=== PATIENT | female | born 1960 | race Caucasian/White ===

== ENCOUNTER → 2024-01-30 16:28 | Outpatient (REF) | payer MEDICARE, SELFPAY | LOC: RAD 16:28 | PROVIDERS: ATTENDING PHYSICIAN Podiatrist Foot Surgery; FAMILY PHYSICIAN Family Medicine | DX: M79.89 Other specified soft tissue disorders (principal) | CPT/HCPCS: 93971 ==

== ENCOUNTER 2024-03-01 10:53 | Emergency (ER) | payer MEDICARE, SELFPAY ==
[2024-03-01 10:58] VITALS: BP 146/89
[2024-03-01 11:43] VITALS: BMI 37.3
--- NOTE | 2024-03-01 11:49 | EDRN ---
Monserrat FUENTES in room w/ pt at this time.
--- NOTE | 2024-03-01 11:58 | ED.GENMED ---
History of Present Illness
General
Chief Complaint: Back Pain
Source: patient
Time Seen by Provider: 03/01/24 11:45
History of Present Illness
History of Present Illness:
63yoF with a history of type 2 diabetes not on medications and a remote history of ulcerative colitis presenting with her sister for evaluation of back pain. Patient reports constant right-sided back pain for the past 3 weeks. She denies any
trauma or inciting incident. Pain is worse if she lays flat. She is experiencing some paresthesias in her bilateral legs. Patient has not been taking anything OTC for her symptoms. She also reports constipation and has not had a bowel movement 2
weeks. She typically has regular bowel movements. She started to feel nauseous last night with urinary frequency. She states she overall has not been feeling right. Patient denies any fevers, chills, abdominal pain, vomiting, weight loss,
incontinence. No prior history of back injuries or surgeries. No history of malignancy or IVDU.
Past History
Past History
ED Past Medical History: NIDDM and Other (Diet-controlled diabetes mellitus, kidney stones, ulcers colitis, Cellulitis, )
ED Past Surgical History:
Social History
Tobacco: Non-smoker
Alcohol: None
Drug: None
Personal:
Living: with family
Employment: Employed
Phy Exam
General Physical Exam
General Presentation: well appearing and no apparent distress
General age: appears stated age
General Skin: warm and dry
General Habitus: normal
General Mental: alert
General Hydration: appears well hydrated
ENT Exam
ENT Exam: normocephalic
Cardiovascular Exam
Cardiovascular Exam: regular rate/rhythm and normal peripheral pulses (2+ DP pulses bilaterally)
Pulmonary Exam
Pulmonary Exam: lungs clear, no respiratory distress, no crackles and no wheezing
Gastrointestinal Exam
Gastrointestinal Exam: non tender, soft, non distended and no cva tenderness
Osorio Coma Scale
Eye Opening: Spontaneous
Verbal Response: Oriented
Motor Response: Obeys Commands
GCS Total Score: 15
Musculoskeletal Exam
Musculoskeletal Exam: other (No reproducible tenderness in lumbar region or skin changes. Negative straight leg raise bilaterally. )
Skin Exam
Skin Exam: normal color and warm/dry
Psychiatric Exam
Psychiatric Exam: normal mood/affect
Course
Orders/Labs/Results
Orders:
Orders
03/01/24 11:48
Cardiac Monitoring- Treatment ONCE
IV Insert/Care/Rem.- Treatment PRN
03/01/24 12:00
CT Abd/pelvis W Iv Cont Urgent
Comment:
Reason For Exam: R back pain, urinary frequency, constipation
03/01/24 12:23
Complete Blood Count/With Diff Stat
Comprehensive Metabolic Panel Stat
Lipase Stat
Comment: ADD ON
Urinalysis Reflex To Culture Urgent
Date Specimen was Collected: 03/01/24
Time Specimen was Collected: 12:17
Urine Microscopic Reflex Cult Urgent
Urine Culture Urgent
JAKI Source: U
Specimen Description:
Date Specimen was Collected: 03/01/24
Time Specimen was Collected: 12:17
03/01/24 14:18
Add On- LAB Urgent
Comments:: tube in lab
Tests Added?: Lipase
Abnormal Lab Results
03/01/24
12:23
Glucose 142 H mg/dl
(70-99)
Alkaline Phosphatase 165 H U/L
(38-126)
Lipase 16 L U/L
(23-300)
Urine Ketones 1+ A
(Negative)
Ur Occult Blood Reflex Trace A
(Negative)
Leukocyte Esterase Rfl 1+ A
(Negative)
Urine RBC 3-6 A /HPF
(0-2)
Urine WBC (Reflex) 11-15 A /HPF
(0-5)
Urine Bacteria (Reflex) Moderate A
(Negative)
03/01/24 12:23
03/01/24 12:23
Vital Signs
Initial and Last Documented VS:
Initial Vital Signs
Temp Pulse Resp BP Pulse Ox
98.1 F 93 16 146/89 98
03/01/24 10:58 03/01/24 10:58 03/01/24 10:58 03/01/24 10:58 03/01/24 10:58
Last Documented Vital Signs
Temp Pulse Resp BP Pulse Ox
98.1 F 80 18 152/73 98
03/01/24 10:58 03/01/24 15:15 03/01/24 15:15 03/01/24 15:15 03/01/24 15:15
MDM/Problems Addressed
Differential Diagnosis Includes:
63yoF here with atraumatic back pain x 3 weeks. Also having urinary frequency, nausea, and constipation. No red flags in history including no fevers, incontinence, saddle anesthesia. VSS. She is well appearing in no distress. There is no
reproducible tenderness in lumbar region. Lower extremities are neurovascularly intact. Differential diagnosis includes but is not limited to: Musculoskeletal back pain, UTI, pyelonephritis, kidney stone
Initial ED plan: Check CBC, CMP, UA, and CT abdomen. She declines analgesics.
*Critical Care Note
Total Time (30-74mins, 75-104mins- exclusive of procedures): Not Applicable
Update Note
Update Note:
Labs overall unremarkable including normal white count and renal function. UA with 11-15 WBC and moderate bacteria consistent with a UTI. CT shows an anterior compression fracture of T11 with minimal loss of height. There is also findings concerning
for chronic pancreatitis. She has no abdominal pain currently. Lipase added which is below normal range. No indication for admission at this time. She was started on a course of doxycycline for her UTI (allergy to sulfa drugs and patient has not
done well with cephalosporins in the past). Advised f/u with PCP, orthopedics, and GI. ED return precautions discussed. She expressed understanding and is agreeable to plan. She was discharged in stable condition.
ED Attending Note
-
Portions of this chart may have been created with voice recognition software.� Occasional wrong word or��sound alike� substitutions may have occurred due to the inherent limitations of voice recognition software.
Discharge Plan
Departure
Patient Disposition: Home (Routine Discharge)
Date of Disposition: 03/01/24
Time of Disposition: 14:40
Patient with high blood pressure during this ER visit?: No
Discharge Problem:
Compression fracture of T11 vertebra, Urinary tract infection, Abnormal abdominal CT scan
Instructions: Vertebral Compression Fracture (DC)
Prescriptions:
New
doxycycline hyclate 100 mg capsule
100 mg PO BID Qty: 14 0RF
No Action
multivitamin with folic acid [Tab-A-Claus] 1 TABLET tablet
1 tab PO DAILY
cholecalciferol (vitamin D3) [Vitamin D3] 125 mcg (5,000 unit) Tablet
125 mcg PO HS
Berberine
1 tab PO MEALS
Cholesterol Vitamin
1 tab PO MEALS
Cinnamon
1 tab PO MEALS
Co Q-10
1 tab PO DAILY
cranberry
1 tab PO DAILY
krill oil
1 tab PO HS
cefazolin 10 gram Recon Soln
2 g IV Q8H 7 Days Qty: 0 0RF
insulin glargine [Lantus Solostar U-100 Insulin] 100 unit/mL (3 mL) insulin pen
10 unit SC QPM Qty: 15 0RF
(DME) diabetic supplies, miscellan. Misc
See Rx Instructions .Route Qty: 1 0RF
Rx Instructions:
As directed
Referrals:
NONE,* [Family Provider] -
Sahwn Mejía MD [Active] -
Callie Pollard DO [Active] -
Activity Restrictions/Additional Instructions:
Take antibiotics as prescribed. Take Tylenol 650mg every 6 hours as needed for pain.
Please follow-up with orthopedics for the fracture in your back and gastroenterology for the possible chronic pancreatitis seen on your CT scan.
Return to the ER with any worsening symptoms, incontinence, new weakness/numbness.
Interventions
Interventions:
*Risk Screen - Suicide Last Done: 03/01/24 11:00
*General Assessment Last Done: 03/01/24 11:43
*Neglect/Abuse Screening Last Done: 03/01/24 11:00
ED- Fall Risk Assessment Last Done: 03/01/24 11:44
*ED COVID-19 Vaccine History Last Done: 03/01/24 11:43
*Nursing Disposition Last Done: 03/01/24 15:15
ED-Musculoskeletal Assessment Last Done: 03/01/24 12:20
Discharge Date and Time
Discharge Date/Time: 03/01/24 15:25
Print Language: BELARUSIAN
[2024-03-01 12:30] VITALS: BP 139/68
[2024-03-01 12:32] LABS: % Basophils 0.4 % (0-2); % Eosinophils 0.4 % (0-6); % Immature Granulocytes 0.1 % (0-0.5); % Lymphocytes 24.1 % (20.5-51.1); % Monocytes 8.2 % (1.7-9.3); % Neutrophils 66.8 % (42.2-75.2); Absolute Lymphocytes 1.7 10^3/uL (1.2-3.4); Absolute Monocytes 0.6 10^3/uL (0.1-0.6); Absolute Neutrophils 4.7 10^3/uL (1.4-6.5); Hematocrit 37.3 % (37.0-47.0); Hemoglobin 13.3 g/dL (12.0-16.0); Mean Corp Hgb Conc. 35.7 g/dL (33.0-37.0); Mean Corpuscular Hgb 29.2 pg (27.0-31.0); Mean Corpuscular Volume 81.8 fL (81.0-99.0); Mean Platelet Volume 8.9 fL (7.4-10.4); Nucleated Red Blood Cells % 0 %; Platelet Count 332 10^3/uL (130-400); Red Blood Cell Count 4.56 10^6/uL (4.20-5.40)
[2024-03-01 12:34] LABS: Urine Albumin Trace (Neg - Trace); Urine Bilirubin Negative (Negative); Urine Character Clear (Clear); Urine Color Yellow; Urine Glucose Negative (Negative); Urine Ketone 1+ (Negative); Urine Leukocyte 1+ (Negative); Urine Nitrite Negative (Negative); Urine Occult Blood Trace (Negative); Urine Urobilinogen Negative (Neg - 1+)
[2024-03-01 12:46] LABS: ALT (SGPT) 22 U/L (0-35); AST (SGOT) 25 U/L (14-36); Albumin 4.5 g/dl (3.5-5.0); Alkaline Phosphatase 165 U/L (38-126); Blood Urea Nitrogen 12 mg/dl (7-17); Calcium 9.6 mg/dl (8.4-10.2); Carbon Dioxide 25 mmol/L (22-30); Chloride 98 mmol/L (98-107); Estimated Creatinine Clearance 91 ml/min; Glucose 142 mg/dl (70-99); Sodium 137 mmol/L (135-145); Total Bilirubin 1.2 mg/dl (0.2-1.3); eGFR > 60.00
[2024-03-01 13:00] VITALS: BP 135/68
[2024-03-01 13:28] LABS: Urine Squamous Cell >30 /LPF (Few)
[2024-03-01 13:29] LABS: Urine Hyaline Cast >15 /LPF (0-2); Urine Mucus Few
[2024-03-01 13:30] LABS: Urine Bacteria Moderate (Negative)
[2024-03-01 14:00] VITALS: BP 139/91
[2024-03-01 14:54] LABS: Lipase 16 U/L (23-300)
[2024-03-01 15:07] VITALS: BP 152/73
[2024-03-01 15:15] VITALS: BP 152/73
== END 2024-03-01 15:25 | disposition home or self-care (01) ==
LOC: EMR 10:53
PROVIDERS: Physician Assistant; EMERGENCY PHYSICIAN Emergency Medicine
DX: M48.54XA Collapsed vertebra, not elsewhere classified, thoracic region, initial encounter for fracture (principal); N39.0 Urinary tract infection, site not specified; R20.2 Paresthesia of skin; K59.00 Constipation, unspecified; R93.5 Abnormal findings on diagnostic imaging of other abdominal regions, including retroperitoneum; E11.9 Type 2 diabetes mellitus without complications; K51.90 Ulcerative colitis, unspecified, without complications; Z87.442 Personal history of urinary calculi; Z88.2 Allergy status to sulfonamides
CPT/HCPCS: 99284; 74177; 80053; 81003; 81015; 83690; 85025; 87086; Q9967

== ENCOUNTER → 2024-03-23 15:16 | Outpatient (REF) | payer MEDICARE, SELFPAY | LOC: RAD 15:16 | PROVIDERS: ATTENDING PHYSICIAN Physical Medicine & Rehabilitation | DX: S22.080A Wedge compression fracture of T11-T12 vertebra, initial encounter for closed fracture (principal) | CPT/HCPCS: 77080 ==

== ENCOUNTER 2024-06-26 17:23 | Emergency (ER) | payer MEDICARE, SELFPAY ==
[2024-06-26 17:54] VITALS: BP 159/111
[2024-06-26 21:17] VITALS: BP 159/80; BMI 38.9
--- NOTE | 2024-06-26 21:59 | ED.GENMED ---
History of Present Illness
General
Chief Complaint: Fall
Source: patient and spouse
Time Seen by Provider: 06/26/24 21:10
History of Present Illness
History of Present Illness:
This is 64-year-old female who presents after she fell last night. States she missed stepped off a curb and fell down injuring her left shoulder and her face. She does report some mild neck pain as well as some pain toward her left ear. Also
obviously complains of left shoulder pain the most. Had x-rays done urgent care which was concerning for fracture and possible dislocation. No loss of conscious. She states she was just very tired last come in last night. No lower extremity
injuries no back pain. No numbness or tingling. No motor weakness. No vision changes.
Past History
Past History
ED Past Medical History: NIDDM and Other (Diet-controlled diabetes mellitus, kidney stones, ulcers colitis, Cellulitis, DVT)
ED Past Surgical History:
Social History
Tobacco: Non-smoker
Alcohol: None
Drug: None
Personal:
Living: with family
Employment: Employed
Phy Exam
Physical Exam
Physical Exam:
CONSTITUTIONAL Patient alert and oriented to person, place and time. Well-appearing. Vital signs reviewed.
HEAD well-approximated laceration to the upper eyelid. Abrasion to the left face. TMs normal bilaterally
EYES Extraocular muscles intact, Conjunctiva normal, Sclera normal.
NECK normal range of motion, Trachea midline, no jugular venous distention. No focal midline tenderness
RESPIRATORY CHEST No respiratory distress noted, Chest expansion equal
ABDOMEN abdomen nontender, Bowel sounds normal. No distention.
BACK normal inspection, no obvious deformities, no midline tenderness
UPPER EXTREMITY Motor strength normal, no cyanosis, no edema. Unable to range the left shoulder. There is a fullness anteriorly
LOWER EXTREMITY range of motion normal, Motor strength normal, no cyanosis, no edema.
NEURO Speech normal, No focal motor deficits, Boone coma scale 15, Memory normal, Cranial Nerves intact to screening exam.
SKIN skin warm, dry, and normal in color.
Course
Orders/Labs/Results
Orders:
Orders
06/26/24 21:43
CT Cervical Spine W/o Iv Contr Urgent
Comment:
Reason For Exam: fall
CT Head W/o Iv Contrast Urgent
Comment:
Reason For Exam: fall
Shoulder, Left, Trauma CR [CR Shoulder, Trauma - Left] Urgent
Comment:
Reason For Exam: fall
06/26/24 23:27
CT Upper Ext W/o Iv Cont Lt Urgent
Comment:
Reason For Exam: fall
Vital Signs
Initial and Last Documented VS:
Initial Vital Signs
Temp Pulse Resp BP Pulse Ox
99.3 F 94 18 159/111 96
06/26/24 17:54 06/26/24 17:54 06/26/24 17:54 06/26/24 17:54 06/26/24 17:54
Last Documented Vital Signs
Temp Pulse Resp BP Pulse Ox
99.3 F 84 16 154/75 93
06/26/24 17:54 06/26/24 22:00 06/26/24 22:00 06/26/24 23:00 06/26/24 23:00
MDM/Problems Addressed
MDM/Problems Addressed:
Shoulder subluxation, humerus fracture
*Radiology
Radiology exam reviewed: preliminary read by ED provider (Humerus fracture, shoulder subluxation versus dislocation)
*Pulse Oximetry
Patient hypoxic: no
*Critical Care Note
Total Time (30-74mins, 75-104mins- exclusive of procedures): Not Applicable
Data Reviewed
Review of Other/Old Records Reveals: Discharge Summary (Discharge summary reviewed from March 2020)
Source: patient
Patient Management
Discussion with other providers: [employer] Att[employer] (Case discussed with orthopedics who recommends CT)
Escalation/DeEscalation of care consider admission/obs:
CT also just possible subluxation but await final read. Orthopedics recommends discharge for outpatient follow-up if there is no dislocation.
ED Attending Note
-
Portions of this chart may have been created with voice recognition software.� Occasional wrong word or��sound alike� substitutions may have occurred due to the inherent limitations of voice recognition software.
Discharge Plan
Departure
Patient Disposition: Home (Routine Discharge)
Date of Disposition: 06/26/24
Time of Disposition: 23:52
Patient with high blood pressure during this ER visit?: Yes
Discharge Problem:
Fracture, humerus, Fracture subluxation of shoulder joint
Instructions: Shoulder or upper arm fracture, BLOOD PRESSURE
Prescriptions:
No Action
multivitamin with folic acid [Tab-A-Claus] 1 TABLET tablet
1 tab PO DAILY
cholecalciferol (vitamin D3) [Vitamin D3] 125 mcg (5,000 unit) Tablet
125 mcg PO HS
Berberine
1 tab PO MEALS
Cholesterol Vitamin
1 tab PO MEALS
Cinnamon
1 tab PO MEALS
Co Q-10
1 tab PO DAILY
cranberry
1 tab PO DAILY
krill oil
1 tab PO HS
cefazolin 10 gram Recon Soln
2 g IV Q8H 7 Days Qty: 0 0RF
insulin glargine [Lantus Solostar U-100 Insulin] 100 unit/mL (3 mL) insulin pen
10 unit SC QPM Qty: 15 0RF
(DME) diabetic supplies, miscellan. Misc
See Rx Instructions .Route Qty: 1 0RF
Rx Instructions:
As directed
doxycycline hyclate 100 mg capsule
100 mg PO BID Qty: 14 0RF
Referrals:
Marizol Holt I., DO [Active] -
NONE,* [Family Provider] -
Activity Restrictions/Additional Instructions:
Keep sling in place. Please see orthopedics in the next 3 to 5 days. Ice your injury. Keep wounds clean and dry. Return immediately for numbness, tingling, worsening pain or any other concerns.
Interventions
Interventions:
*Risk Screen - Suicide Last Done: 06/26/24 17:54
*General Assessment Last Done: 06/26/24 17:54
*Neglect/Abuse Screening Last Done: 06/26/24 17:54
ED-Musculoskeletal Assessment Last Done: 06/26/24 21:17
ED- Neurological Assessment Last Done: 06/26/24 21:17
ED-Skin Assessment Last Done: 06/26/24 21:17
Discharge Date and Time
Print Language: CHILEAN
[2024-06-26 22:00] VITALS: BP 139/80
[2024-06-26 23:00] VITALS: BP 154/75
[2024-06-27] VITALS: BP 161/82
== END 2024-06-27 00:35 | disposition home or self-care (01) ==
LOC: EMR 17:23
PROVIDERS: EMERGENCY PHYSICIAN Emergency Medicine
DX: S42.295A Other nondisplaced fracture of upper end of left humerus, initial encounter for closed fracture (principal); S43.002A Unspecified subluxation of left shoulder joint, initial encounter; W10.1XXA Fall (on)(from) sidewalk curb, initial encounter
CPT/HCPCS: 99285; 70450; 72125; 73030; 73200

== ENCOUNTER 2024-07-19 21:52 | Emergency (ER) | payer MEDICARE, SELFPAY ==
[2024-07-19 21:52] VITALS: BMI 36.5
[2024-07-19 21:58] VITALS: BP 148/73
[2024-07-19 22:36] LABS: % Basophils 0.2 % (0-2); % Immature Granulocytes 0.6 % (0-0.5); % Lymphocytes 6.6 % (20.5-51.1); % Monocytes 6.2 % (1.7-9.3); % Neutrophils 86.4 % (42.2-75.2); Absolute Immature Granulocytes 0.1 10^3/uL (0-0.05); Absolute Lymphocytes 1.1 10^3/uL (1.2-3.4); Absolute Monocytes 1.1 10^3/uL (0.1-0.6); Absolute Neutrophils 14.7 10^3/uL (1.4-6.5); Hematocrit 38.1 % (37.0-47.0); Hemoglobin 13.4 g/dL (12.0-16.0); Mean Corp Hgb Conc. 35.2 g/dL (33.0-37.0); Mean Corpuscular Hgb 28.6 pg (27.0-31.0); Mean Corpuscular Volume 81.2 fL (81.0-99.0); Nucleated Red Blood Cells % 0 %; Platelet Count 337 10^3/uL (130-400); Red Blood Cell Count 4.69 10^6/uL (4.20-5.40); Red Cell Dist. Width 13.4 % (11.5-14.5)
[2024-07-19 22:47] LABS: INR 1.06; PT 14.1 Sec (11.4-14.6)
[2024-07-19 22:56] LABS: ALT (SGPT) 18 U/L (0-35); AST (SGOT) 18 U/L (14-36); Albumin 4.1 g/dl (3.5-5.0); Alkaline Phosphatase 158 U/L (38-126); Blood Urea Nitrogen 13 mg/dl (7-17); Calcium 9.3 mg/dl (8.4-10.2); Carbon Dioxide 24 mmol/L (22-30); Chloride 90 mmol/L (98-107); Glucose 231 mg/dl (70-99); Potassium 3.8 mmol/L (3.5-5.1); Sodium 125 mmol/L (135-145); Total Bilirubin 1.9 mg/dl (0.2-1.3); eGFR > 60.00
[2024-07-19 23:03] LABS: COVID-19 Antigen Negative (Negative); Troponin I < 0.012 ng/ml
[2024-07-19 23:14] VITALS: BP 135/70
[2024-07-20] VITALS (7 sets, daily range): BP systolic 113–148; BP diastolic 66–83
--- NOTE | 2024-07-20 00:41 | ED.GENMED ---
History of Present Illness
General
Chief Complaint: Chest Pain
Time Seen by Provider: 07/20/24 00:40
History of Present Illness
History of Present Illness:
TIME OF INITIAL ENCOUNTER: 2 AM
HPI: The patient has a general unwell feeling. Family members have viral syndromes. She also recently fractured her left shoulder. She feels tremendously exhausted to the point that she can barely walk. She also had some vague 'quivering'
sensation in the central chest that she states feels similar to the time that she had a blood clot in her lungs.
EXAM:
GENERAL: The patient appears generally weak and debilitated
HEENT: Moist oral mucosa
CARDIOVASCULAR: No murmurs, normal heart rate, regular rhythm, No chest wall tenderness
PULMONARY: No respiratory distress, breath sounds are clear and equal
ABDOMEN: Soft with no peritoneal signs, no tenderness
NEUROLOGIC: Excellent strength all extremities, no coordination deficits
PSYCHIATRIC: Appropriate mental status, normal insight and judgement
EXTREMITIES: Nontender, no edema, moves all extremities equally
SKIN: No rash, no lesions
NUMBER AND COMPLEXITY OF PROBLEMS ADDRESSED AT THE ENCOUNTER
� Chronic conditions affecting care: DVT, ulcerative colitis, diabetes
� Acute Exacerbation and/or Progression of Chronic Illness: This is an acute problem
� Differential Diagnosis includes: Viral syndrome, electrolyte abnormality, poorly controlled diabetes, dehydration
AMOUNT AND/OR COMPLEXITY OF DATA TO BE REVIEWED AND ANALYZED
� I performed an independent evaluation of and my interpretation is:
EKG: Sinus 114, left axis deviation, septal Q waves along with LVH
CT: CT chest shows no PE and no dissection, the patient was aware of a subacute appearing T12 vertebral body
X-rays:
Laboratory Studies: White count 17.0, hemoglobin normal, sodium 125, glucose 231, total bili 1.9 which is higher than prior, troponin less than 0.012, COVID-negative, flu negative
Other:
� Review of other/old records: I reviewed records, the patient was seen here for cellulitis of the left lower extremity and March 2023 and her blood sugar was also managed at that time with insulin
� Clinical information was obtained by an independent historian: None needed
� Prescriptions/Medications Considered but not given:
� Further testing considered but not performed:
RISK OF COMPLICATIONS AND/OR MORBIDITY OR MORTALITY OF PATIENT MANAGEMENT
� Social determinants of health affecting care: Lives at home
� Discussion with other providers:
� Escalation of care including admission/observation vs risk of discharge considered: The patient is mildly hyponatremic. She was given IV fluids. Glucose is elevated. White count is elevated.
ANY OTHER UPDATES:
5:30 AM: I reassessed patient. Mild tachycardia persists at about 105. She was given IV fluids and reports that she feels markedly improved now. I offered and considered keeping her here in the hospital however the patient feels significantly
improved regarding her weakness that she had earlier and now prefers to go home. Corrected sodium for glucose is 128. I also offered to keep the patient in the hospital for further management of her blood sugar however she prefers to just
follow-up with an [employer] consultant as an outpatient. She also states that she did not tolerate metformin in the past.
Past History
Past History
ED Past Medical History: NIDDM and Other (Diet-controlled diabetes mellitus, kidney stones, ulcers colitis, Cellulitis, DVT)
ED Past Surgical History:
Social History
Tobacco: Non-smoker
Alcohol: None
Drug: None
Personal:
Living: with family
Employment: Employed
Phy Exam
Physical Exam
Physical Exam:
See HPI
Scores
Heart Score for Chest Pain Patients
STEMI patient?: Not applicable
Course
Orders/Labs/Results
Orders:
Orders
07/19/24 22:01
EKG [Electrocardiogram (*1)] Urgent
Reason for Study: Chest Pain
EKG- Treatment ONCE
07/19/24 22:16
COVID-19 Antigen Urgent
Source: Nasal Swab
Complete Blood Count/With Diff Urgent
Troponin I Urgent
Influenza A+B Rapid Molecular Urgent
JAKI Source: Nasal Swab
Specimen Description:
07/19/24 22:17
Comprehensive Metabolic Panel Urgent
Prothrombin Time Urgent
07/20/24 01:05
CT Chest PE Study Urgent
Comment:
Reason For Exam: palpitations, feels like prior PE, not on AC
07/20/24 01:06
0.9% Sodium Chloride 1000 ml [Nss] 1,000 ml IV BOLUS
Abnormal Lab Results
07/19/24 07/19/24
22:16 22:17
WBC 17.0 H 10^3/uL
(4.8-10.8)
Abs Immat Gran (auto) 0.1 H 10^3/uL
(0-0.05)
Absolute Neuts (auto) 14.7 H 10^3/uL
(1.4-6.5)
Absolute Lymphs (auto) 1.1 L 10^3/uL
(1.2-3.4)
Absolute Monos (auto) 1.1 H 10^3/uL
(0.1-0.6)
Immature Gran % 0.6 H %
(0-0.5)
Neutrophils % 86.4 H %
(42.2-75.2)
Lymphocytes % 6.6 L %
(20.5-51.1)
Sodium 125 L mmol/L
(135-145)
Chloride 90 L mmol/L
(98-107)
Glucose 231 H mg/dl
(70-99)
Total Bilirubin 1.9 H mg/dl
(0.2-1.3)
Alkaline Phosphatase 158 H U/L
(38-126)
07/19/24 22:16
07/19/24 22:17
Vital Signs
Initial and Last Documented VS:
Initial Vital Signs
Temp Pulse Resp BP Pulse Ox
37.4 C 115 18 148/73 97
07/19/24 21:58 07/19/24 21:58 07/19/24 21:58 07/19/24 21:58 07/19/24 21:58
Last Documented Vital Signs
Temp Pulse Resp BP Pulse Ox
37.4 C 101 20 129/72 93
07/19/24 21:58 07/20/24 04:15 07/20/24 04:15 07/20/24 04:00 07/20/24 04:15
*Critical Care Note
Total Time (30-74mins, 75-104mins- exclusive of procedures): Not Applicable
ED Attending Note
-
Portions of this chart may have been created with voice recognition software.� Occasional wrong word or��sound alike� substitutions may have occurred due to the inherent limitations of voice recognition software.
Discharge Plan
Departure
Prescriptions:
No Action
multivitamin with folic acid [Tab-A-Claus] 1 TABLET tablet
1 tab PO DAILY
cholecalciferol (vitamin D3) [Vitamin D3] 125 mcg (5,000 unit) Tablet
125 mcg PO HS
Berberine
1 tab PO MEALS
Cholesterol Vitamin
1 tab PO MEALS
Cinnamon
1 tab PO MEALS
Co Q-10
1 tab PO DAILY
cranberry
1 tab PO DAILY
krill oil
1 tab PO HS
insulin glargine [Lantus Solostar U-100 Insulin] 100 unit/mL (3 mL) insulin pen
10 unit SC QPM Qty: 15 0RF
(DME) diabetic supplies, miscellan. Misc
See Rx Instructions .Route Qty: 1 0RF
Rx Instructions:
As directed
doxycycline hyclate 100 mg capsule
100 mg PO BID Qty: 14 0RF
Referrals:
NONE,* [Family Provider] -
Interventions
Interventions:
*Risk Screen - Suicide Last Done: 07/19/24 21:58
*General Assessment Last Done: 07/19/24 21:58
*Neglect/Abuse Screening Last Done: 07/19/24 21:58
ED- Fall Risk Assessment Last Done: 07/20/24 03:50
*ED COVID-19 Vaccine History Last Done: 07/19/24 21:58
ED- Cardiac Assessment Last Done: 07/20/24 03:50
Discharge Date and Time
Print Language: KAZAKH
[2024-07-20] MEDS: NSS 1000 IV (01:09)
== END 2024-07-20 06:35 | disposition home or self-care (01) ==
LOC: EMR 21:52
PROVIDERS: Emergency Medicine; EMERGENCY PHYSICIAN Emergency Medicine
DX: R07.89 Other chest pain (principal); E11.65 Type 2 diabetes mellitus with hyperglycemia; Z86.718 Personal history of other venous thrombosis and embolism; Z87.19 Personal history of other diseases of the digestive system; Z11.52 Encounter for screening for COVID-19; Z86.711 Personal history of pulmonary embolism
CPT/HCPCS: 99284; 96360; 71275; 80053; 84484; 85025; 85610; 87502; 87811; 93005; Q9967

== ENCOUNTER 2024-07-27 16:20 | Inpatient (IN) | payer MEDICARE, SELFPAY ==
[2024-07-26 20:45] VITALS: BP 137/71
[2024-07-26 21:14] LABS: % Basophils 0.3 % (0-2); % Eosinophils 0.1 % (0-6); % Immature Granulocytes 1.2 % (0-0.5); % Lymphocytes 6.5 % (20.5-51.1); % Monocytes 7.9 % (1.7-9.3); Absolute Basophils 0.1 10^3/uL (0-0.2); Absolute Immature Granulocytes 0.2 10^3/uL (0-0.05); Absolute Monocytes 1.2 10^3/uL (0.1-0.6); Absolute Neutrophils 12.3 10^3/uL (1.4-6.5); Hematocrit 35.3 % (37.0-47.0); Hemoglobin 12.5 g/dL (12.0-16.0); Mean Corp Hgb Conc. 35.4 g/dL (33.0-37.0); Mean Corpuscular Volume 79.1 fL (81.0-99.0); Nucleated Red Blood Cells % 0 %; Platelet Count 310 10^3/uL (130-400); Red Blood Cell Count 4.46 10^6/uL (4.20-5.40); Red Cell Dist. Width 13.6 % (11.5-14.5); White Blood Cell Count 14.6 10^3/uL (4.8-10.8)
[2024-07-26 21:28] LABS: ALT (SGPT) 18 U/L (0-35); AST (SGOT) 17 U/L (14-36); Albumin 3.4 g/dl (3.5-5.0); Alkaline Phosphatase 155 U/L (38-126); Blood Urea Nitrogen 15 mg/dl (7-17); Calcium 8.9 mg/dl (8.4-10.2); Carbon Dioxide 27 mmol/L (22-30); Chloride 89 mmol/L (98-107); Glucose 303 mg/dl (70-99); Lipase 11 U/L (23-300); Potassium 4.3 mmol/L (3.5-5.1); Sodium 127 mmol/L (135-145); Total Bilirubin 1.4 mg/dl (0.2-1.3); Total Protein 6.1 g/dl (6.3-8.2); eGFR > 60.00
[2024-07-26 21:29] LABS: COVID-19 Antigen Negative (Negative)
--- NOTE | 2024-07-26 23:09 | ED.GENMED ---
History of Present Illness
General
Chief Complaint: Failure to Thrive
Source: patient, previous radiology exam ( CT of the chest/PE study 1 week ago showing no evidence of PE. Subacute left 9th through 11th rib fractures, subacute T12 compression fracture.) and previous hospital records (ED visit June 26 after
suffering a fall, left shoulder pain, found to have left humerus fracture with subluxation. July 20 complaints of generalized fatigue, chest discomfort. CT of the chest/PE study negative for PE.)
Exam Limitations: none
Time Seen by Provider: 07/26/24 22:32
Nursing documentation reviewed up to this point in time: agreed with
History of Present Illness
History of Present Illness:
This is a 64-year-old woman who has history of [id number] diabetes�on no medications and admits to lacking PCP.
She has remote history of ulcerative colitis, 2 episodes occurring over 20 years ago and states these episodes were brought about with moderate generalized stress. Had been following with GI at that time but reports no recurrent episodes for more
than 20 years. During those episodes of ulcerative colitis she admits to being significantly sedentary and suffered a DVT/PE. No history of recurrence. On no anticoagulants.
She suffered a mechanical fall June 25 and evaluated in this ED June 26 with complaints of left shoulder pain, found to have humerus fracture with subluxation. Has been following with orthopedics.
She presented to this ED 1 week ago with complaints of significant generalized fatigue as well as a vague quivering sensation in the center of her chest that was questionably similar to previous episode of blood clot in her lungs over 20 years ago.
At that time she did admit that several family members were suffering with viral syndromes. Workup notable for CT of the chest negative for PE but found to have subacute left 9th through 11th rib fractures and T12 compression fracture�progressed
from previous. At that time the fall she denied left chest pain nor back pain. She has had no recurrent falls. Has not been taking anything for pain.
EKG shows sinus tachycardia. Troponin was negative. Labs remarkable for elevated white blood cell count, elevated glucose 230 with mild hyponatremia. Minimally elevated T. bili.
She returns tonight with overall continuing to not feel well, she complains of intermittent cough that she states began last week but seems worse over the past day or 2, she has had generalized aches, fatigue, with onset of nausea and vomiting today
as well as some right flank to right upper quadrant pain that radiates to her right lower quadrant. She states she has not had a bowel movement in quite some time although admits to several episodes of diarrhea yesterday.
She states current symptoms feel different from previous episodes of ulcerative colitis and current symptoms feel different from previous episodes of renal colic/kidney stones.
She denies dysuria nor urgency nor hematuria.
She is worried for a bowel blockage.
Past History
Past History
ED Past Medical History: NIDDM and Other (Diet-controlled diabetes mellitus, kidney stones, Ulcerative colitis over 20 years ago, Cellulitis, DVT/PE during episode of ulcerative colitis over 20 years ago)
ED Past Surgical History:
Social History
Tobacco: Non-smoker
Alcohol: None
Drug: None
Personal:
Living: with family
Employment: Employed
Family History
Family History: Other (Noncontributory)
Phy Exam
Physical Exam
Physical Exam:
GENERAL: 64-year-old female appears her stated age, awake and alert, pleasant, appears in no acute distress. Low-grade fever of 100.5 �F noted. Respirations are easy nonlabored. No cough appreciated during exam.
EYE: pupils equal and reactive. anicteric
NECK: Supple, nontender, no meningismus, no significant adenopathy.
ENT: posterior pharynx is clear, oral mucosa is minimally dry. TM clear b/l, nares patent.
CARDIAC: Regular rate and rhythm. no murmur.
LUNGS: Clear breath sounds bilaterally, no acute respiratory distress, no wheezes/rales/rhonchi. No chest wall tenderness
ABDOMEN: Soft, nondistended, Mild tenderness to palpation right upper quadrant, mild tenderness right lower quadrant, no rigidity nor guarding, mild to moderate right CVA tenderness with percussion. Normoactive bowel sounds.
NEUROLOGICAL: Alert and oriented x3, no focal neuro deficits.
SKIN: Warm and dry, normal color, skin intact. No rash.
MUSCULOSKELETAL: No C/C/E. peripheral pulses are full and equal b/l. No palpable tenderness.
PSYCH: Normal and appropriate interaction.
Sepsis
Sepsis Screening
Sepsis Assessment: Sepsis
Sepsis Screen
Sepsis Screen: Sepsis
Date: 07/27/24
Time: 04:08
Course
Orders/Labs/Results
Orders:
Orders
07/26/24 20:49
CR Chest - 2 Views Urgent
Comment:
Reason For Exam: cough
07/26/24 21:05
COVID-19 Antigen Urgent
Source: Nasal Swab
Complete Blood Count/With Diff Urgent
Comprehensive Metabolic Panel Urgent
Lipase Urgent
TSH Reflex To Free T4 Urgent
Comment: ADD ON
Influenza A+B Rapid Molecular Urgent
JAKI Source: Nasal Swab
Specimen Description:
07/26/24 22:43
Add On- LAB Urgent
Tests Added?: TSH w reflex to free T-4
07/26/24 22:50
Electrocardiogram (*1) Urgent
Reason for Study: Palpitations
EKG- Treatment ONCE
07/26/24 23:08
Urinalysis Reflex To Culture Urgent
Date Specimen was Collected: 07/27/24
Time Specimen was Collected: 01:44
0.9% Sodium Chloride 1000 ml [Nss] 1,000 ml IV BOLUS
Acetaminophen [Tylenol] 1,000 mg PO NOW STA
07/26/24 23:32
Lactic Acid Urgent
07/27/24
CT Abd/pelvis W Iv Cont Urgent
Reason For Exam: right flank to RLQ pain, N/V, fever
07/27/24 01:46
Urine Microscopic Reflex Cult Urgent
Urine Culture Urgent
JAKI Source: U
Specimen Description:
Date Specimen was Collected: 07/27/24
Time Specimen was Collected: 01:44
07/27/24 03:59
CefTRIAXone [Rocephin] 1,000 mg IV NOW STA
Abnormal Lab Results
07/26/24 07/27/24
21:05 01:46
WBC 14.6 H 10^3/uL
(4.8-10.8)
Hct 35.3 L %
(37.0-47.0)
MCV 79.1 L fL
(81.0-99.0)
Abs Immat Gran (auto) 0.2 H 10^3/uL
(0-0.05)
Absolute Neuts (auto) 12.3 H 10^3/uL
(1.4-6.5)
Absolute Lymphs (auto) 1.0 L 10^3/uL
(1.2-3.4)
Absolute Monos (auto) 1.2 H 10^3/uL
(0.1-0.6)
Immature Gran % 1.2 H %
(0-0.5)
Neutrophils % 84.0 H %
(42.2-75.2)
Lymphocytes % 6.5 L %
(20.5-51.1)
Sodium 127 L mmol/L
(135-145)
Chloride 89 L mmol/L
(98-107)
Glucose 303 H mg/dl
(70-99)
Total Bilirubin 1.4 H mg/dl
(0.2-1.3)
Alkaline Phosphatase 155 H U/L
(38-126)
Total Protein 6.1 L g/dl
(6.3-8.2)
Albumin 3.4 L g/dl
(3.5-5.0)
Lipase 11 L U/L
(23-300)
Urine Ketones 3+ A
(Negative)
Ur Occult Blood Reflex 4+ A
(Negative)
Urine Nitrite (Reflex) Positive A
(Negative)
Leukocyte Esterase Rfl 3+ A
(Negative)
Urine RBC 11-15 A /HPF
(0-2)
Urine WBC (Reflex) >100 A /HPF
(0-5)
Urine Bacteria (Reflex) Many A
(Negative)
Urine Glucose 4+ A
(Negative)
Urine Albumin (Reflex) 3+ A
(Neg - Trace)
07/26/24 21:05
07/26/24 21:05
Vital Signs
Initial and Last Documented VS:
Initial Vital Signs
Temp Pulse Resp BP Pulse Ox
99.2 F 116 16 137/71 96
07/26/24 20:45 07/26/24 20:45 07/26/24 20:45 07/26/24 20:45 07/26/24 20:45
Last Documented Vital Signs
Temp Pulse Resp BP Pulse Ox
98.3 F 78 17 130/70 95
07/27/24 00:54 07/27/24 02:45 07/27/24 02:45 07/27/24 02:00 07/27/24 02:45
MDM/Problems Addressed
Differential Diagnosis Includes:
Concern for viral syndrome, gastroenteritis, pyelonephritis, colitis, kidney stone, pneumonia, COVID, influenza, thyroid disorder. This and other entities considered.
Thus far labs reveal mildly elevated white blood cell count of 14.6, has improved from 17 last week.
Mild hyponatremia with sodium of 127, has improved from 125 last week. Random glucose 303. Without acidosis.
T. bili 1.4, has improved from 1.9.
COVID and flu testing are negative.
Chest x-ray shows subacute left lateral rib fractures. Clear lung garner. Normal heart size.
Patient noted to have low-grade fever and at least as of last week noted several family members with viral syndrome. This could certainly be the case. Reassuring that CT of the chest/PE study last week showed no evidence of PE nor pneumonia.
Will medicate fever with Tylenol, will initiate IV fluids, will check urinalysis, EKG and will check CT abdomen pelvis with IV contrast.
Chronic conditions affecting care: DM, Previous abdomnial surgery (), Kidney disease (Prior history of kidney stones) and Other (Prior history of ulcerative colitis)
*Radiology
Radiology exam reviewed: radiology read reviewed (CAT scan concerning for striated left nephrogram/concerning for pyelonephritis. No bowel obstruction. Constipation. Cholelithiasis without evidence of cholecystitis. Normal appendix. Worsening
compression fracture of T12 vertebral body with 50% height loss anteriorly. No acute abnormality with)
*Pulse Oximetry
Patient hypoxic: no
*EKG
Interpreted by ED Provider?: Yes
Interpretation: normal
Comparison EKG: no changes (Unchanged from previous July 19, 2024 safer heart rate has decreased from 114 to now 79)
Rate: normal
Rhythm: sinus
[place]: left axis deviation
Interval: normal interval
QRS Pattern: poor R-wave progression
Ischemia: no ischemia
*Regulator Tester Interpretation
Rate: normal
Interpretation: normal
Rhythm: sinus
*Critical Care Note
Total Time (30-74mins, 75-104mins- exclusive of procedures): Not Applicable
Update Note
Update Note:
04:05
CT abdomen pelvis concerning for potential pyelonephritis, left kidney. No evidence of obstructing stone. There is note again of compression fracture of T12.
Cholelithiasis without evidence of cholecystitis. Normal appendix. Moderate stool burden but no bowel obstruction.
Urinalysis consistent with UTI. With back pain, fever, CAT scans finding, concerning for pyelonephritis.
Elevated white blood cell count but reassuring that lactic acid is normal.
Nausea has improved with antiemetics but has not resolved. Continues with moderate nausea without vomiting.
Will initiate IV Rocephin for pyelonephritis and due to persistent nausea, concern for inability to maintain adequate hydration patient will require acute hospitalization.
ED Attending Note
-
Portions of this chart may have been created with voice recognition software.� Occasional wrong word or��sound alike� substitutions may have occurred due to the inherent limitations of voice recognition software.
Discharge Plan
Departure
Patient Disposition: Admit
Date of Disposition: 07/27/24
Time of Disposition: 04:06
Admit to: Med/Surg
Admit to doctor: Patrizia
Presentation/result/management discussed w/ accepting MD/DO: Hospitalist
Condition: Fair
Discharge Problem:
Acute bacterial pyelonephritis
Prescriptions:
No Action
multivitamin with folic acid [Tab-A-Claus] 1 TABLET tablet
1 tab PO DAILY
cholecalciferol (vitamin D3) [Vitamin D3] 125 mcg (5,000 unit) Tablet
125 mcg PO HS
Berberine
1 tab PO MEALS
Cholesterol Vitamin
1 tab PO MEALS
Cinnamon
1 tab PO MEALS
Co Q-10
1 tab PO DAILY
cranberry
1 tab PO DAILY
krill oil
1 tab PO HS
insulin glargine [Lantus Solostar U-100 Insulin] 100 unit/mL (3 mL) insulin pen
10 unit SC QPM Qty: 15 0RF
(DME) diabetic supplies, miscellan. Misc
See Rx Instructions .Route Qty: 1 0RF
Rx Instructions:
As directed
doxycycline hyclate 100 mg capsule
100 mg PO BID Qty: 14 0RF
Referrals:
NONE,* [Family Provider] -
Interventions
Interventions:
*Risk Screen - Suicide Last Done: 07/26/24 20:45
*General Assessment Last Done: 07/26/24 20:45
*Neglect/Abuse Screening Last Done: 07/26/24 20:45
ED- Fall Risk Assessment Last Done: 07/27/24 01:16
*ED COVID-19 Vaccine History Last Done: 07/27/24 01:44
ED- Pulmonary Assessment Last Done: 07/27/24 01:17
Discharge Date and Time
Print Language: PORTUGUESE
[2024-07-26 23:21] VITALS: BP 132/75
[2024-07-26 23:23] VITALS: BP 132/75
[2024-07-26] MEDS: NSS 1000 IV (23:29)
[2024-07-26] MEDS: TYLENOL 1000 MG PO (23:30)
[2024-07-26 23:50] LABS: TSH Reflex To Free T4 1.94 uIU/ml (0.47-4.68)
[2024-07-26 23:51] LABS: Lactic Acid 0.7 mmol/L (0.7-2.0)
[2024-07-27] VITALS (11 sets, daily range): BP systolic 111–153; BP diastolic 65–82; BMI 35.8
[2024-07-27 02:13] LABS: Urine Albumin 3+ (Neg - Trace); Urine Bilirubin Negative (Negative); Urine Character Slightly Cloudy (Clear); Urine Color Yellow; Urine Glucose 4+ (Negative); Urine Ketone 3+ (Negative); Urine Leukocyte 3+ (Negative); Urine Nitrite Positive (Negative); Urine Occult Blood 4+ (Negative); Urine Urobilinogen 1+ (Neg - 1+)
[2024-07-27 02:24] LABS: Urine Squamous Cell >30 /LPF (Few)
[2024-07-27 02:26] LABS: Urine Bacteria Many (Negative); Urine White Cell >100 /HPF (0-5)
[2024-07-27] MEDS: ROCEPHIN 1000 MG IV (04:44)
--- NOTE | 2024-07-27 05:47 | HPS.HSE ---
Family Physician
-
Family Physician: * NONE
Chief Complaint
-
fatigue, N/V
History of Present Illness
This is a six 4-year-[age] female with past medical history of llm-hjnznnw-uglnchdaw diabetes, history of kidney stones, ulcerative colitis in the past, prior DVT, presenting to the emergency department with progressive multiple complaints most
notable for generalized aches fatigue and nausea and vomiting.
Patient reported that she was seen in the emergency department 1 week ago for generalized fatigue as well as vague quivering sensation in her chest. Had similar episode when she had blood clots 20 years ago. Workup at the time notable for a CT of
the chest which was negative for PE but was found to have subacute rib fractures of the 9th through 11th ribs and T12 compression fracture. Patient denied chest pain. She has had no recurrent falls.
She returns with complaints of intermittent cough that again began last week and was over the last 2 days, generalized ache, fatigue, nausea and vomiting that began today. She also reports right flank to right upper quadrant pain that radiates to
her lower quadrant. She has some constipation. Reports that she has not had bowel movement in some time but admits to several episodes of diarrhea yesterday. Feels these symptoms are different from ulcerative colitis and different from prior
episodes of renal colic. She denies dysuria.
In the emergency department, she was afebrile, blood pressure was 130/70 with a pulse of 78 and satting 90% on room air. ECG showed normal sinus rhythm at rate of 79. White count was 14,000, hemoglobin and platelets were normal. Electrolytes
BUN/creatinine were all normal. LFTs showed no significant abnormality. UA was cloudy with positive nitrites leukocyte esterase and bacteria. Chest x-ray shows no acute infiltrates.
She had a CT of the abdomen pelvis which was consistent with pyelonephritis showing striated left kidney nephrogram and surrounding stranding.
Medical History
Past Medical History
Past Medical History: Reports Other
Additional Past Medical History:
Diabetes Mellitus, Type II
Ulcerative Colitis
Past Surgical History: Reports Other
Additional Past Surgical History:
Section
Social History
Tobacco: Non-smoker
Alcohol: Occasional
Family History
Family History: Not pertinent
Allergies / Home Medications
Allergies reflects when Allergies were last updated in [employer].
Home Medications with original date entered in [employer]
Allergy/Medication List:
Allergies
Allergy/AdvReac Type Severity Reaction Status Date / Time
Sulfa (Sulfonamide Allergy Rash Verified 07/26/24 23:19
Antibiotics)
Home Medications
multivitamin with folic acid 400 mcg tablet (Tab-A-Claus) 1 tab PO DAILY Supplement 05/06/10
Berberine 1 tab PO MEALS Supplement 03/26/23
Cholesterol Vitamin 1 tab PO MEALS Supplement 03/26/23
Cinnamon 1 tab PO MEALS Supplement 03/26/23
Co Q-10 1 tab PO DAILY Supplement 03/26/23
cholecalciferol (vitamin D3) 125 mcg (5,000 unit) tablet (Vitamin D3) 125 mcg PO HS Supplement 03/26/23
cranberry 1 tab PO DAILY Supplement 03/26/23
krill oil 1 tab PO HS Supplement 03/26/23
diabetic supplies, miscellan. #1 ea 04/02/23
insulin glargine 100 unit/mL (3 mL) subcutaneous pen (Lantus Solostar U-100 Insulin) 10 unit (0.1 mL) SC QPM #15 mL 04/02/23
doxycycline hyclate 100 mg capsule 100 mg PO BID #14 caps 03/01/24
Review of Systems
-
Constitutional: Reports Fatigue
EENT: Reports No Symptoms
Respiratory: Reports Cough
Cardiac: Reports No Symptoms
Abdomen/GI: Reports Abdominal Pain, Nausea, Vomiting, Diarrhea and Constipated
: Reports No Symptoms
Musculoskeletal: Reports Joint Pain
Skin: Reports No Symptoms
Neurological: Reports No Symptoms
Endocrine: Reports No Symptoms
Hematologic/Lymphatic: Reports No Symptoms
Psych: Reports No Symptoms
Physical Exam
Vital Signs
Vital Signs
Temp Pulse Resp BP Pulse Ox
98.3 F 78 17 130/70 95
07/27/24 00:54 07/27/24 02:45 07/27/24 02:45 07/27/24 02:00 07/27/24 02:45
Physical Exam
General: Well Developed, Well Nourished, Comfortable and Conversant
HEENT: NormoCephalic, Anicteric, Moist mucous membranes and Atraumatic
Respiratory: Clear
Cardiac: S1/S2 and Regular Rhythm
Breast: Deferred by me
GI: Soft, Non Distended and Normal Bowel Sounds
Genito-urinary: Costovertebral angle tend
Musculoskeletal: No Clubbing
Skin: Warm
Neuro: AO x 3 and Nonfocal/grossly intact
Hematologic/Lymphatic: No Lymphadenopathy
Psych: Calm
Laboratory Results
-
07/26/24 21:05
07/26/24 21:05
Laboratory Results
Lactic Acid 0.7 mmol/L (0.7-2.0) 07/26/24 23:32
Total Bilirubin 1.4 mg/dl (0.2-1.3) H 07/26/24 21:05
AST 17 U/L (14-36) 07/26/24 21:05
ALT 18 U/L (0-35) 07/26/24 21:05
Alkaline Phosphatase 155 U/L (38-126) H 07/26/24 21:05
Lipase 11 U/L (23-300) L 07/26/24 21:05
Data Reviewed
-
Diagnostic Radiology: Report Reviewed by me
CT Scan: Report Reviewed by me
Medical Tests (Nuc Med, Echo, EKG etc): Image Personally Visualized and interpreted
Lab Data: Labs Reviewed by me
Old Records: Reviewed
Impression/Plan
-
IMPRESSION:
64-year-old with generalized aches and pains, nausea and vomiting that started today, decreased appetite coming into the emergency department and found to have positive UA and Left pyelonephritis on CT scan. The rest of the CT study was negative
for any acute intra-abdominal process. He has intermittent constipation and diarrhea and has history of ulcerative colitis in the past but does not appear to be having exacerbation at this time and is not currently on any medications for it. Labs
mostly unremarkable with a mild leukocytosis to 14 and a sodium of 127. UA is consistent with a pyelo found on CT scan.
PLAN:
1. Pyelonephritis - Left pyelo on CT with positive u/a, patient reports right flank pain. She is afebrile and HD stable. N/V c/w pyelo.
- admit to med/surg obs
- urine culture
- IV ceftriaxone for now
- pain control and antiemetics
- IV fluids with NS
2. DM II - Reports she doesn't take any oral meds or insulin. Glucse 300, normal bicarb.
- IV NS
- sliding scale insulin for now
- check a1c
DVT PPX - SCDs
Code status - Full code
--- NOTE | 2024-07-27 09:07 | W.PN.HOSP.TC ---
Today's Communication/Plan
-
IV antibiotics pending cultures
IV hydration
Blood glucose monitoring and treatment.
Assessment / Plan
Assessment / Plan
Impression:*
64-year-old with generalized aches and pains, nausea and vomiting that started today, decreased appetite coming into the emergency department and found to have positive UA and Left pyelonephritis on CT scan. The rest of the CT study was negative
for any acute intra-abdominal process. He has intermittent constipation and diarrhea and has history of ulcerative colitis in the past but does not appear to be having exacerbation at this time and is not currently on any medications for it. Labs
mostly unremarkable with a mild leukocytosis to 14 and a sodium of 127. UA is consistent with a pyelo found on CT scan.
UTI/pyelonephritis.
Hyponatremia.
Type 2 diabetes with hyperglycemia, untreated
Elevated bilirubin with mild elevation of alkaline phosphatase
Other conditions:
Ulcerative colitis as per history
Recent fall with left shoulder and rib fractures
CT abdomen/pelvis with IV contrast
1. There is inflammation surrounding the superior aspect of the left kidney with a low attenuation area suggesting possible pyelonephritis. There is a left renal calculus, unchanged from prior with no evidence of obstruction.
2. There are pancreatic calcifications consistent with chronic pancreatitis
3. There is a compression fracture of T12, worsened from the prior study
4. There is cholelithiasis
5. There is a hepatic calcification, unchanged
Plan:
UTI/pyelonephritis.
Does not appear toxic but
No evidence of systemic infection upon presentation
Initiated on antibiotics/ceftriaxone pending blood and urine cultures.
IV hydration per
Tight blood glucose control
Type 2 diabetes with hyperglycemia untreated. Patient is not on any glucose lowering medications or insulin prior to presentation
Patient reports was not able to tolerate metformin in the past
Check hemoglobin A1c
Carbohydrate controlled diet
Basal bolus protocol
Diabetic nurse practitioner consult
Hypovolemic/euvolemic hyponatremia
Corrected sodium with blood glucose 130
Check TSH, urine osmole and sodium
Continue IV hydration
Follow BMP
Elevated total bilirubin with very mild elevation of alk phos.
Follow-up with hydration.
Noted cholelithiasis on CT scan with no clinical evidence of acute cholecystitis on exam.
Anticipated Discharge: 24 - 48 hours
Subjective/Interval History
-
Date of Service: July 27, 2024
Objective Data
-
Labs:
Laboratory Results
07/26/24
21:05
WBC 14.6 H
Hgb 12.5
Hct 35.3 L
Plt Count 310
Sodium 127 L
Potassium 4.3
Chloride 89 L
Carbon Dioxide 27
BUN 15
Creatinine 0.7
Glucose 303 H
Calcium 8.9
Total Bilirubin 1.4 H
AST 17
ALT 18
Alkaline Phosphatase 155 H
Vital Signs:
Vital Signs
Temp Pulse Resp BP Pulse Ox
98.8 F 87 13 146/76 95
07/27/24 08:00 07/27/24 08:15 07/27/24 08:15 07/27/24 08:00 07/27/24 08:15
Physical Exam
-
General: Well Developed and No Apparent Distress
HEENT: Normocephalic, Atraumatic and Moist Mucous Membranes
Respiratory: Clear to Auscultation
Cardiac: Regular Rhythm and S1/S2; Negative Murmur, Rub or Gallop
GI: Soft, Nontender, Nondistended and Normal Bowel Sounds; Negative Organomegaly
Rectal: Deferred by Provider
Musculoskeletal: No Clubbing, No Cyanosis and No Edema
Skin: Negative Rash
Neuro: Nonfocal/Grossly Intact
[2024-07-27] MEDS: NSS 1000 IV ×2 (09:43→22:01)
[2024-07-27] MEDS: ZOFRAN 4 MG IV (09:43)
[2024-07-27] MEDS: TYLENOL PO (09:43)
[2024-07-27 11:12] LABS: Urine Sodium 9 mmol/L (30-90)
[2024-07-27 11:22] LABS: Osmolality Urine 519 mOsm/kg (300-900)
[2024-07-27 11:47] LABS: Glucose - Point of Care 239 mg/dl (70-99)
[2024-07-27] MEDS: NOVOLOG FLEXPEN-MODERATE RESISTANCE 3 UNITS SC (12:07)
--- NOTE | 2024-07-27 12:49 | PN.DE.MGMTRT ---
Insulin Management
- -
07/27/2024 Diabetes Management Consult
Patient admitted 07/26 failure to thrive, UTI, pyelonephritis. PMH diabetes, untreated, kidney stone, ulcerative colitis 20 years ago and cellulitis DVT/PE 20 years ago, recent fall with multiple fractured ribs. A1C ordered. cr .7, eGFR > 60.
Patient is awake alert and oriented in bed in ED. Able to discuss diabetes care. Prior to admission was taking no medications. Patient states she had diabetes 30 years, does not test glucose.
Glucose on admission 303, not retested until 11:30 today 239.
Will start lantus 14 units @ HS with novolog 3 units AC and moderate corrective.
Will ask Diabetes Nurse Educator to provide and instruct on glucose monitor as well as insulin administration.
Discussed with nurse.
Will follow
Diabetes History
- -
Type of Diabetes: 2 requiring insulin
Pre-Admission Diabetes Regimen
07/26/24
21:05
Creatinine 0.7
Insulin Pump Settings
IP Diabetes Regimen
07/26/24 07/27/24
21:05 11:46
Glucose 303 H
POC Glucose 239 H
Patient Education
[2024-07-27 13:27] LABS: Glucose - Point of Care 224 mg/dl (70-99)
[2024-07-27] MEDS: NOVOLOG FLEXPEN 3 UNITS SC ×2 (13:30→16:45)
--- NOTE | 2024-07-27 14:02 | PTCARENOTE ---
Report sent to [facility]. Rec'd pt as a hold. Blood sugar taken, lunch given. RAC site leaking at time of transfer to floor. All belongings in room sent with patient.
--- NOTE | 2024-07-27 15:00 | PTCARENOTE ---
Patient admitted from the ER into room 408-01. Oriented to room, use of call martin and controls for bed and TV. Reviewed plan of care with patient. Patient verbalizes understanding of teaching and denies questions at this time. Vital signs stable.
Resting comfortably in bed without complaints of pain or other complaints at this time.
--- NOTE | 2024-07-27 15:38 | PTCARENOTE ---
I met with Cristal to review diabetes self management. Her was present at her bedside. Cristal had a Onetouch meter at home but the battery and she had not replaced it and has not bee monitoring her glucose levels for the past year. I
reviewed the proper procedure for checking a fingerstick as well as a monitoring schedule. I reinforced target glucose ranges for fasting and 2 hours post prandial. Cristal stated she has had diabetes education over 10 years ago and was not taking any
medication at home for her diabetes. She reported taking insulin in the past while hospitalized. I discussed insulin and proper administration via an insulin pen. Long acting and rapid acting insulin were discussed and written material was provided
as a reference. Cristal was able to return demonstrate doing a practice injection with a demo pen. She plans to self inject with RN supervision. I instructed Cristal on hypoglycemia and she was able to verbalize appropriate treatment. I encouraged her
to wear medical Identification and gave her resources to attend the outpatient DSME program for further education. Cristal had questions regarding nutrition. I gave an overview of carbohydrates and the RN will put in a referral for a data warehousing engineer visit
while she is admitted.
[2024-07-27 16:41] LABS: Glucose - Point of Care 258 mg/dl (70-99)
[2024-07-27] MEDS: NOVOLOG FLEXPEN-MODERATE RESISTANCE 5 UNITS SC (16:44)
[2024-07-27] MEDS: HEPARIN 5000 UNITS SC (20:23)
[2024-07-27] MEDS: TYLENOL 650 MG PO (20:23)
[2024-07-27 21:52] LABS: Glucose - Point of Care 183 mg/dl (70-99)
[2024-07-27] MEDS: LANTUS 0.14 UNITS SC (21:54)
[2024-07-28 05:07] LABS: Glucose - Point of Care 169 mg/dl (70-99)
[2024-07-28] MEDS: ROCEPHIN 1000 MG IV ×2 (05:37→15:57)
[2024-07-28] MEDS: STERILE WATER FOR INJECTION 10 ML IV ×2 (05:38→15:57)
[2024-07-28 07:06] VITALS: BP 116/63
--- NOTE | 2024-07-28 07:31 | PN.DE.MGMTRT ---
Insulin Management
- -
07/28/2024 Diabetes Management Consult Follow up
Patient admitted 3/ failure to thrive, UTI, pyelonephritis. PMH untreated diabetes, kidney stone, ulcerative colitis 20 years ago and cellulitis DVT/PE 20 years ago, recent fall with multiple fractured ribs. A1C 10.8%. cr .7, eGFR > 60.
Patient is awake alert and oriented in bed, able to discuss diabetes care. Prior to admission was taking no medications. Patient states she had diabetes 30 years, does not test glucose. Patient very receptive at this time. Understands importance
of testing glucose and taking insulin.
07/27 Lantus 14 units @ HS with novolog 3 units AC and moderate corrective started. Glucose range 239 to 258, HS 183.
07/28 Fasting glucose 169. Will increase hs lantus to 15 units, AC novolog increased from 3 to 5 units AC with moderate corrective.
Diabetes Nurse Educator provided and instruct on glucose monitor as well as insulin administration. Nursing now supervising patient self injecting.
Discussed with nurse.
Will follow
Diabetes History
- -
Type of Diabetes: 2 requiring insulin
Pre-Admission Diabetes Regimen
Lab Results
Hemoglobin A1c Cancelled 07/27/24 12:45
Insulin Pump Settings
IP Diabetes Regimen
07/27/24 07/27/24 07/27/24
11:46 13:25 16:40
POC Glucose 239 H 224 H 258 H
07/27/24 07/28/24
21:50 05:04
POC Glucose 183 H 169 H
Patient Education
[2024-07-28] MEDS: NSS IV ×2 (08:05→16:02)
[2024-07-28 08:21] LABS: Hemoglobin 11.1 g/dL (12.0-16.0); Mean Corp Hgb Conc. 33.6 g/dL (33.0-37.0); Mean Corpuscular Hgb 27.7 pg (27.0-31.0); Mean Corpuscular Volume 82.3 fL (81.0-99.0); Mean Platelet Volume 8.8 fL (7.4-10.4); Platelet Count 264 10^3/uL (130-400); Red Blood Cell Count 4.01 10^6/uL (4.20-5.40); Red Cell Dist. Width 13.8 % (11.5-14.5); White Blood Cell Count 15.5 10^3/uL (4.8-10.8)
[2024-07-28 08:31] LABS: Glycohemoglobin (HgbA1c) 10.8 % (4.0-5.6)
[2024-07-28 08:34] LABS: Glucose - Point of Care 209 mg/dl (70-99)
[2024-07-28] MEDS: NOVOLOG FLEXPEN-MODERATE RESISTANCE SC (09:04)
[2024-07-28] MEDS: NOVOLOG FLEXPEN 5 UNITS SC ×3 (09:05→17:29)
[2024-07-28] MEDS: HEPARIN 5000 UNITS SC ×2 (09:08→20:44)
[2024-07-28 09:13] LABS: ALT (SGPT) 13 U/L (0-35); AST (SGOT) 15 U/L (14-36); Albumin 2.6 g/dl (3.5-5.0); Alkaline Phosphatase 131 U/L (38-126); Blood Urea Nitrogen 12 mg/dl (7-17); Carbon Dioxide 26 mmol/L (22-30); Chloride 98 mmol/L (98-107); Direct Bilirubin 0.4 mg/dl (0.0-0.4); Estimated Creatinine Clearance 95 ml/min; Glucose 213 mg/dl (70-99); Potassium 3.5 mmol/L (3.5-5.1); Sodium 131 mmol/L (135-145); Total Bilirubin 0.8 mg/dl (0.2-1.3); eGFR > 60.00
[2024-07-28] MEDS: NOVOLOG FLEXPEN-MODERATE RESISTANCE 3 UNITS SC ×2 (09:16→17:28)
[2024-07-28] MEDS: NOVOLOG FLEXPEN SC (09:31)
--- NOTE | 2024-07-28 10:39 | CM ---
Patient seen at bedside
IA completed
tt from [facility] patient LOC inpatient-IMM explained & signed. In chart
Dx: pyelonephritis
PMH: msa-[id number]-vndozaoet diabetes, history of kidney stones, ulcerative colitis in the past, prior DVT
patient stated when she took her son to special [place] basketball she fell off a curb approx 1 month ago and fx her shoulder-no surgical intervention.
Patient lives with her and 33 y/o down syndrome son in a 2 story home, 0 steps to enter, flight to bed/bath, powder room on 1st floor
PLOF: Independent, states does not use assistive device
DME: Cane, walker, shower chair
had [facility] years ago, and states was going to outpatient PT for her back issues ([facility]) in [place] prior to her shoulder injury
Denies insecurities
PCP: States she does not have a current PCP - Resources given on [facility]
Pharmacy: [facility]
PLAN: CM to follow & monitor patient progress
[2024-07-28 12:14] LABS: Glucose - Point of Care 160 mg/dl (70-99)
[2024-07-28] MEDS: NOVOLOG FLEXPEN-MODERATE RESISTANCE 1 UNITS SC (12:22)
--- NOTE | 2024-07-28 12:54 | PTCARENOTE ---
Educated patient on use of insulin pen. Patient able to demonstrate usage of insulin pen and administered regular insulin coverage prior to lunch. Patient will need reinforcement of teaching.
[2024-07-28 15:13] VITALS: BP 138/79
--- NOTE | 2024-07-28 15:32 | PTCARENOTE ---
I met with Cristal and gave her a Contour Next Ez glucometer. She was able to set up the meter and return demonstrated a fingerstick glucose. We reviewed glucose target ranges and a monitoring schedule. She verbalized she gave herself the insulin
injection this morning with the RN supervision. I reinforced hypoglycemia and she denied having any questions or concerns.
--- NOTE | 2024-07-28 15:44 | CON.ID ---
Consultation
-
Date/Time Consultation Requested: 07/28/24 12:20
Date/Time Consultation Performed: 07/28/24 15:44
Requesting Provider: Dr Harvey
Performing Provider: Dr Syed
Reason for Consultation: bacteremia
Chief Complaint / Past History
Chief Complaint
rigors
History of Present Illness
Ms Mas is a 64 year old female with a history of diet controlled DM2, renal stones, remote history of UC who presented here on 07/27 for right flank pain with radiation to the lower quadrant, nausea, vomiting and generalized myalgias which began
same day. Also several days of constipation followed by diarrhea the day prior to arrival. No dysuria. Progressed to developed rigors.
Since arrival here Tmax 100.5, bp stable, wbc initially 14.6 this am 15, hgb 11.1, plt 264, L shift noted, na initially 127 now 131, cr 0.6, a1c 10.8, glucose 213, alk phos 131, t bili 0.8, ast 15, alt 13, UA many bacteria and >100 wbc/hpf, CT a/p
with IV contrast: inflammation surrounding the superior aspect of the left kidney with a low attenuation area suggesting possible pyelonephritis. There is a left renal calculus, unchanged from prior with no evidence of obstruction, 07/26 CXR: no
infiltrates, urine culture 100K GNR, blood cultures both with GNR one of which has been IDd as K pneumoniae, patient was started on ceftriaxone 1 gm IV q24 hours, reports ongoing rigors overnight, ID is consulted for assistance with management.
Past History
Additional Past Medical History:
Diabetes Mellitus, Type II
Ulcerative Colitis
Additional Past Surgical History:
Section
Allergy History:
Sulfa (Sulfonamide Antibiotics) Allergy (Verified 07/26/24 23:19)
Rash
Medications Reviewed: Yes
Social History
Tobacco: Non-Smoker
Alcohol: None
Personal:
Family History
Family History: Not Pertinent
Review of Systems
Review of Systems
General: Fever and Chills
All systems: All other systems were reviewed and were negative
Vital Signs
Temp Pulse Resp BP Pulse Ox
98.9 F 82 20 116/63 96
07/28/24 10:02 07/28/24 10:02 07/28/24 10:02 07/28/24 07:06 07/28/24 07:45
Physical Exam
Physical Exam
Constitutional: Acutely Ill and Non-toxic
Cardiovascular: Regular Rate and S1/S2; Negative Murmur or Rub
Pulmonary: Clear and Symmetric; Negative Wheezes, Rales or Rhonchi
Gastrointestinal: Soft, Non Tender, Non Distended and Normal Bowel Sounds
Genito-Urinary: Negative Suprapubic Tenderness or CVA Tenderness
Skin: Warm and Dry; Negative Rash or Jaundice
Lab / Diagnostic Study Results
07/28/24 08:09
07/28/24 08:09
Abs Immat Gran (auto) 0.2 10^3/uL (0-0.05) H 07/26/24 21:05
Absolute Neuts (auto) 12.3 10^3/uL (1.4-6.5) H 07/26/24 21:05
Absolute Lymphs (auto) 1.0 10^3/uL (1.2-3.4) L 07/26/24 21:05
Absolute Monos (auto) 1.2 10^3/uL (0.1-0.6) H 07/26/24 21:05
Absolute Basos (auto) 0.1 10^3/uL (0-0.2) 07/26/24 21:05
Immature Gran % 1.2 % (0-0.5) H 07/26/24 21:05
Neutrophils % 84.0 % (42.2-75.2) H 07/26/24 21:05
Lymphocytes % 6.5 % (20.5-51.1) L 07/26/24 21:05
Monocytes % 7.9 % (1.7-9.3) 07/26/24 21:05
Eosinophils % 0.1 % (0-6) 07/26/24 21:05
Basophils % 0.3 % (0-2) 07/26/24 21:05
Lactic Acid 0.7 mmol/L (0.7-2.0) 07/26/24 23:32
Ur Squamous Epith Cells >30 /LPF (Few) 07/27/24 01:46
Microbiology Results
Micro:
07/27/24 04:16 Blood Culture - Preliminary
Blood/Venous Klebsiella pneumoniae
Gram Stain - Final
07/27/24 01:46 Urine Culture - Preliminary
Urine Gram negative bacilli
07/27/24 04:16 Blood Culture - Preliminary
Blood/Venous Positive culture in progress
Gram Stain - Preliminary
07/26/24 21:05 Influenza Types A & B (ANGELLA) - Final
Nasal Swab Negative for Influenza A & B, NAAT
Negative results must be combined with clinical observations
and patient history.
Nucleic Acid Amplification test (NAAT)performed on the
[employer] platform.
Assessment / Plan
Pyelonephritis due to K pneumoniae
K pneumoniae bacteremia
Nonobstructing renal stone
Uncontrolled Dm2
Class II obesity
- awaiting final sensitivities on the K pneumoniae, source is urine, no need to repeat blood cultures for clearance from my perspective
- increased dose of ceftriaxone to 2 gm IV q24 hours
- plan transition to oral therapies when sensitivities are back
--- NOTE | 2024-07-28 16:31 | W.PN.HOSP.TC ---
Today's Communication/Plan
-
Continue IV antibiotics pending final culture and sensitivities.
Adjust insulin regimen.
Assessment / Plan
Assessment / Plan
Impression:*
64-year-old with generalized aches and pains, nausea and vomiting that started today, decreased appetite coming into the emergency department and found to have positive UA and Left pyelonephritis on CT scan. The rest of the CT study was negative
for any acute intra-abdominal process. He has intermittent constipation and diarrhea and has history of ulcerative colitis in the past but does not appear to be having exacerbation at this time and is not currently on any medications for it. Labs
mostly unremarkable with a mild leukocytosis to 14 and a sodium of 127. UA is consistent with a pyelo found on CT scan.
UTI/pyelonephritis.
Hyponatremia.
Type 2 diabetes with hyperglycemia, untreated
Elevated bilirubin with mild elevation of alkaline phosphatase
Obesity with BMI of 35
Other conditions:
Ulcerative colitis as per history
Recent fall with left shoulder and rib fractures
CT abdomen/pelvis with IV contrast
1. There is inflammation surrounding the superior aspect of the left kidney with a low attenuation area suggesting possible pyelonephritis. There is a left renal calculus, unchanged from prior with no evidence of obstruction.
2. There are pancreatic calcifications consistent with chronic pancreatitis
3. There is a compression fracture of T12, worsened from the prior study
4. There is cholelithiasis
5. There is a hepatic calcification, unchanged
Plan:
UTI/pyelonephritis.
Klebsiella bacteremia secondary to complicated UTI
Blood culture positive for Klebsiella pending sensitivities
ID input appreciated
Continue current antibiotics, dose adjusted by ID.
Repeat blood culture for clearance
Type 2 diabetes with hyperglycemia untreated. Patient is not on any glucose lowering medications or insulin prior to presentation
Patient reports was not able to tolerate metformin in the past
Hemoglobin A1c 10.8
Carbohydrate controlled diet
Initiated on Lantus/NovoLog. Dose being adjusted
Basal bolus protocol serial Accu-Cheks
Diabetic nurse practitioner consult
Hypovolemic/euvolemic hyponatremia
Urine sodium of 9
Corrected sodium with blood glucose 130
TSH within normal limit
Continue IV hydration
Follow BMP
Elevated total bilirubin with very mild elevation of alk phos.
Follow-up with hydration.
Noted cholelithiasis on CT scan with no clinical evidence of acute cholecystitis on exam.
Anticipated Discharge: > 48 hours
Subjective/Interval History
-
Date of Service: July 28, 2024
Objective Data
-
Labs:
Laboratory Results
07/28/24
08:09
WBC 15.5 H
Hgb 11.1 L
Hct 33.0 L
Plt Count 264
Sodium 131 L
Potassium 3.5
Chloride 98
Carbon Dioxide 26
BUN 12
Creatinine 0.6
Glucose 213 H
Calcium 8.0 L
Total Bilirubin 0.8
AST 15
ALT 13
Alkaline Phosphatase 131 H
Vital Signs:
Vital Signs
Temp Pulse Resp BP Pulse Ox
99.6 F 89 20 138/79 96
07/28/24 15:13 07/28/24 15:13 07/28/24 15:13 07/28/24 15:13 07/28/24 15:13
I&O
07/27/24 07/28/24 07/29/24
06:59 06:59 06:59
Intake Total 1680 / 1680
Balance 1680 / 1680
Physical Exam
-
General: Well Developed and No Apparent Distress
HEENT: Normocephalic, Atraumatic and Moist Mucous Membranes
Respiratory: Clear to Auscultation
Cardiac: Regular Rhythm and S1/S2; Negative Murmur, Rub or Gallop
GI: Soft, Nontender, Nondistended and Normal Bowel Sounds; Negative Organomegaly
Rectal: Deferred by Provider
Musculoskeletal: No Clubbing, No Cyanosis and No Edema
Skin: Negative Rash
Neuro: Nonfocal/Grossly Intact
[2024-07-28 16:50] LABS: Glucose - Point of Care 203 mg/dl (70-99)
[2024-07-28 17:29] LABS: Glucose - Point of Care 200 mg/dl (70-99)
[2024-07-28 20:43] LABS: Glucose - Point of Care 196 mg/dl (70-99)
[2024-07-28] MEDS: TYLENOL 650 MG PO (20:44)
[2024-07-28] MEDS: LANTUS 0.15 UNITS SC (20:45)
[2024-07-28 23:24] VITALS: BP 141/77
[2024-07-29] MEDS: ROCEPHIN 2000 MG IV (06:02)
[2024-07-29] MEDS: STERILE WATER FOR INJECTION 10 ML IV (06:02)
[2024-07-29 07:10] VITALS: BP 136/75
[2024-07-29 07:16] LABS: % Basophils 0.4 % (0-2); % Eosinophils 0.6 % (0-6); % Immature Granulocytes 0.7 % (0-0.5); % Lymphocytes 11.8 % (20.5-51.1); % Monocytes 6.9 % (1.7-9.3); % Neutrophils 79.6 % (42.2-75.2); Absolute Eosinophils 0.1 10^3/uL (0-0.7); Absolute Immature Granulocytes 0.1 10^3/uL (0-0.05); Absolute Lymphocytes 1.3 10^3/uL (1.2-3.4); Absolute Monocytes 0.8 10^3/uL (0.1-0.6); Absolute Neutrophils 9.1 10^3/uL (1.4-6.5); Hematocrit 33.5 % (37.0-47.0); Hemoglobin 11.5 g/dL (12.0-16.0); Mean Corp Hgb Conc. 34.3 g/dL (33.0-37.0); Mean Corpuscular Hgb 27.7 pg (27.0-31.0); Mean Corpuscular Volume 80.7 fL (81.0-99.0); Mean Platelet Volume 8.9 fL (7.4-10.4); Nucleated Red Blood Cells % 0 %; Platelet Count 309 10^3/uL (130-400); Red Blood Cell Count 4.15 10^6/uL (4.20-5.40); Red Cell Dist. Width 13.8 % (11.5-14.5); White Blood Cell Count 11.4 10^3/uL (4.8-10.8)
[2024-07-29 08:04] LABS: Blood Urea Nitrogen 12 mg/dl (7-17); Calcium 8.4 mg/dl (8.4-10.2); Carbon Dioxide 30 mmol/L (22-30); Chloride 97 mmol/L (98-107); Estimated Creatinine Clearance 95 ml/min; Glucose 168 mg/dl (70-99); Potassium 3.8 mmol/L (3.5-5.1); Sodium 132 mmol/L (135-145); eGFR > 60.00
[2024-07-29 08:12] LABS: Glucose - Point of Care 135 mg/dl (70-99)
[2024-07-29] MEDS: NOVOLOG FLEXPEN-MODERATE RESISTANCE SC (08:43)
[2024-07-29] MEDS: HEPARIN 5000 UNITS SC (08:45)
[2024-07-29] MEDS: NOVOLOG FLEXPEN 8 UNITS SC ×2 (08:48→12:50)
[2024-07-29] MEDS: NOVOLOG FLEXPEN SC ×2 (08:51→18:25)
--- NOTE | 2024-07-29 08:52 | PN.DE.MGMTRT ---
Insulin Management
- -
07/29/2024 Diabetes Management Consult Follow up
Patient admitted / failure to thrive, UTI, pyelonephritis. PMH untreated diabetes, kidney stone, ulcerative colitis 20 years ago and cellulitis DVT/PE 20 years ago, recent fall with multiple fractured ribs. A1C 10.8%. cr .7, eGFR > 60.
Patient is awake alert and oriented in bed, able to discuss diabetes care. Prior to admission was taking no medications. Patient states she had diabetes 30 years, does not test glucose. Patient very receptive at this time. Understands importance
of testing glucose and taking insulin.
07/28 Fasting glucose 169, glucose range 160 to 200 pre meal. HS lantus increased to 15 units, AC novolog increased to 5 units AC with moderate corrective.
07/29 Fasting glucose 168 venous, 135 POC. Will increase AC novolog to 8 units, reduce corrective from moderate to low. Continue Lantus 15 units @ HS.
Diabetes Nurse Educator provided and instruct on glucose monitor as well as insulin administration. Nursing now supervising patient self injecting. Nurse reports patient did excellent with self injection of AM novolog.
Discussed with nurse.
Will follow
Diabetes History
- -
Type of Diabetes: 2 requiring insulin
Pre-Admission Diabetes Regimen
07/28/24 07/29/24
08:09 07:05
Creatinine 0.6 0.4 L
Lab Results
Hemoglobin A1c Cancelled 07/27/24 12:45
Insulin Pump Settings
IP Diabetes Regimen
07/28/24 07/28/24 07/28/24
08:09 12:12 16:49
Glucose 213 H
POC Glucose 160 H 203 H
07/28/24 07/28/24 07/29/24
17:27 20:42 07:05
Glucose 168 H
POC Glucose 200 H 196 H
07/29/24
08:10
Glucose
POC Glucose 135 H
Meal type: Dinner
Meal type: Lunch
Meal type: Breakfast
Amount consumed: 100%
Amount consumed: 100%
Amount consumed: 100%
Patient Education
--- NOTE | 2024-07-29 10:10 | W.PN.ID1 ---
Date of Service
Date of Service: July 29, 2024
Today's Communication
- still had sweats last night and more malaise today - would continue IV route another day, then friday start cefdinir 300 mg po BID x14 day total course (long course given uncontrolled DM2)
- follow up with PCP
Assessment / Plan
Pyelonephritis due to K pneumoniae
K pneumoniae bacteremia
Nonobstructing renal stone
Uncontrolled Dm2
Class II obesity
- sensitivities back on K pneumoniae, source is urine, no need to repeat blood cultures for clearance from my perspective
- still had sweats last night and more malaise today - would continue IV route another day, then friday start cefdinir 300 mg po BID x14 day total course (long course given uncontrolled DM2)
- follow up with PCP
Chief Complaint
-: UTI and Bacteremia
Subjective / Review of Systems
no further sarkis fevers recorded
bp stable
no events overnight
Vital Signs / Physical Exam
Vital Signs
Vital Signs
Temp Pulse Resp BP Pulse Ox
98.6 F 87 20 136/75 92
07/29/24 07:10 07/29/24 07:10 07/29/24 07:10 07/29/24 07:10 07/29/24 07:10
Physical Exam
Constitutional: No Acute Distress
Cardiovascular: Regular Rate and S1/S2; Negative Murmur or Rub
Pulmonary: Clear and Symmetric; Negative Wheezes or Rales
Gastrointestinal: Soft, Non Tender, Non Distended and Normal Bowel Sounds
Genito-Urinary: Negative Suprapubic Tenderness or CVA Tenderness
Skin: Warm and Dry; Negative Rash or Jaundice
Objective Data
Lab Data
Lab Results
07/29/24 07:05
07/29/24 07:05
Estimated Creat Clear 95 ml/min 07/29/24 07:05
Lactic Acid 0.7 mmol/L (0.7-2.0) 07/26/24 23:32
Total Bilirubin 0.8 mg/dl (0.2-1.3) 07/28/24 08:09
AST 15 U/L (14-36) 07/28/24 08:09
ALT 13 U/L (0-35) 07/28/24 08:09
Alkaline Phosphatase 131 U/L (38-126) H 07/28/24 08:09
Most recent labs reviewed.
Urine Culture Final 07/29/24-825
CC: Greater than 100,000 CFU/ML Klebsiella pneumoniae
Organism 1 Klebsiella pneumoniae
1. Klebsiella pneumoniae
M.I.C. RX
--------- ---
Amoxicillin/Potas. Clavulanate <=8/4 S
Ampicillin >16 R
Ampicillin/Sulbactam 8/4 S
Aztreonam <=4 S
Cefazolin <=2 S
Ertapenem <=0.5 S
Ciprofloxacin <=0.25 S
Gentamicin <=2 S
Meropenem <=1 S
Nitrofurantoin-Urine Only 64 I
Piperacillin/Tazobactam <=8 S
Tetracycline <=4 S
Tobramycin <=2 S
Trimethoprim/Sulfamethoxazole <=2/38 S
Micro Results:
07/27/24 04:16 Blood Culture - Preliminary
Blood/Venous Klebsiella pneumoniae
Gram Stain - Preliminary
07/27/24 04:16 Blood Culture - Final
Blood/Venous Klebsiella pneumoniae
Gram Stain - Final
07/27/24 01:46 Urine Culture - Final
Urine Klebsiella pneumoniae
07/26/24 21:05 Influenza Types A & B (ANGELLA) - Final
Nasal Swab Negative for Influenza A & B, NAAT
Negative results must be combined with clinical observations
and patient history.
Nucleic Acid Amplification test (NAAT)performed on the
[employer] platform.
[2024-07-29 11:49] LABS: Glucose - Point of Care 128 mg/dl (70-99)
--- NOTE | 2024-07-29 13:27 | CM ---
Chart reviewed.
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
continues with IV antibiotics
PLAN: Home, no needs anticipated
to transport
[2024-07-29 15:15] VITALS: BP 138/76
--- NOTE | 2024-07-29 15:54 | W.PN.HOSP.TC ---
Today's Communication/Plan
-
Overall improved generalized weakness, although reports chills overnight.
Continue IV antibiotics and monitor closely
Assessment / Plan
Assessment / Plan
Impression:*
64-year-old with generalized aches and pains, nausea and vomiting that started today, decreased appetite coming into the emergency department and found to have positive UA and Left pyelonephritis on CT scan. The rest of the CT study was negative
for any acute intra-abdominal process. He has intermittent constipation and diarrhea and has history of ulcerative colitis in the past but does not appear to be having exacerbation at this time and is not currently on any medications for it. Labs
mostly unremarkable with a mild leukocytosis to 14 and a sodium of 127. UA is consistent with a pyelo found on CT scan.
UTI/pyelonephritis.
Hyponatremia.
Type 2 diabetes with hyperglycemia, untreated
Elevated bilirubin with mild elevation of alkaline phosphatase
Obesity with BMI of 35
Other conditions:
Ulcerative colitis as per history
Recent fall with left shoulder and rib fractures
CT abdomen/pelvis with IV contrast
1. There is inflammation surrounding the superior aspect of the left kidney with a low attenuation area suggesting possible pyelonephritis. There is a left renal calculus, unchanged from prior with no evidence of obstruction.
2. There are pancreatic calcifications consistent with chronic pancreatitis
3. There is a compression fracture of T12, worsened from the prior study
4. There is cholelithiasis
5. There is a hepatic calcification, unchanged
Plan:
UTI/pyelonephritis.
Klebsiella bacteremia secondary to complicated UTI
Blood culture positive for Klebsiella pending sensitivities
ID input appreciated
Continue current antibiotics, dose adjusted by ID.
Repeat blood culture for clearance
Type 2 diabetes with hyperglycemia untreated. Patient is not on any glucose lowering medications or insulin prior to presentation
Patient reports was not able to tolerate metformin in the past
Hemoglobin A1c 10.8
Carbohydrate controlled diet
Initiated on Lantus/NovoLog. Dose being adjusted
Basal bolus protocol serial Accu-Cheks
Diabetic nurse practitioner consult
Hypovolemic/euvolemic hyponatremia
Urine sodium of 9
Corrected sodium with blood glucose 130
TSH within normal limit
Continue IV hydration
Follow BMP
Elevated total bilirubin with very mild elevation of alk phos.
Follow-up with hydration.
Noted cholelithiasis on CT scan with no clinical evidence of acute cholecystitis on exam.
Anticipated Discharge: 24 - 48 hours
Subjective/Interval History
-
Date of Service: July 29, 2024
Objective Data
-
Labs:
Laboratory Results
07/29/24
07:05
WBC 11.4 H
Hgb 11.5 L
Hct 33.5 L
Plt Count 309
Sodium 132 L
Potassium 3.8
Chloride 97 L
Carbon Dioxide 30
BUN 12
Creatinine 0.4 L
Glucose 168 H
Calcium 8.4
Vital Signs:
Vital Signs
Temp Pulse Resp BP Pulse Ox
98.6 F 87 20 136/75 92
07/29/24 07:10 07/29/24 07:10 07/29/24 07:10 07/29/24 07:10 07/29/24 07:10
I&O
07/28/24 07/29/24 07/30/24
06:59 06:59 06:59
Intake Total 1680 / 1680 860 / 860
Balance 1680 / 1680 860 / 860
Physical Exam
-
General: Well Developed and No Apparent Distress
HEENT: Normocephalic, Atraumatic and Moist Mucous Membranes
Respiratory: Clear to Auscultation
Cardiac: Regular Rhythm and S1/S2; Negative Murmur, Rub or Gallop
GI: Soft, Nontender, Nondistended and Normal Bowel Sounds; Negative Organomegaly
Rectal: Deferred by Provider
Musculoskeletal: No Clubbing, No Cyanosis and No Edema
Skin: Negative Rash
Neuro: Nonfocal/Grossly Intact
[2024-07-29 17:02] LABS: Glucose - Point of Care 88 mg/dl (70-99)
[2024-07-29] MEDS: NOVOLOG FLEXPEN 4 UNITS SC (18:00)
--- NOTE | 2024-07-29 18:41 | PTCARENOTE ---
Patient's accu check 88. Patient states that she feels as though her sugar is low. States she feels 'foggy'. 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 Patient ate more than half of dinner. Instructed to give 4 Units rather than 8 units tonight.
[2024-07-29 19:36] LABS: Hepatitis C Antibody Negative (Negative)
[2024-07-29] MEDS: HEPARIN SC (20:41)
[2024-07-29 21:25] LABS: Glucose - Point of Care 192 mg/dl (70-99)
[2024-07-29] MEDS: LANTUS 0.15 UNITS SC (22:45)
[2024-07-29 23:17] VITALS: BP 169/95
[2024-07-30] MEDS: STERILE WATER FOR INJECTION 20 ML IV (05:52)
[2024-07-30] MEDS: ROCEPHIN 2000 MG IV (05:53)
[2024-07-30 07:05] VITALS: BP 137/81
[2024-07-30 07:10] LABS: % Basophils 0.2 % (0-2); % Eosinophils 0.4 % (0-6); % Immature Granulocytes 0.6 % (0-0.5); % Lymphocytes 13.2 % (20.5-51.1); % Neutrophils 78.6 % (42.2-75.2); Absolute Immature Granulocytes 0.1 10^3/uL (0-0.05); Absolute Lymphocytes 1.4 10^3/uL (1.2-3.4); Absolute Monocytes 0.7 10^3/uL (0.1-0.6); Absolute Neutrophils 8.2 10^3/uL (1.4-6.5); Hematocrit 33.3 % (37.0-47.0); Hemoglobin 11.5 g/dL (12.0-16.0); Mean Corp Hgb Conc. 34.5 g/dL (33.0-37.0); Mean Corpuscular Hgb 27.8 pg (27.0-31.0); Mean Corpuscular Volume 80.6 fL (81.0-99.0); Mean Platelet Volume 9.1 fL (7.4-10.4); Nucleated Red Blood Cells % 0 %; Platelet Count 346 10^3/uL (130-400); Red Blood Cell Count 4.13 10^6/uL (4.20-5.40); Red Cell Dist. Width 13.6 % (11.5-14.5); White Blood Cell Count 10.4 10^3/uL (4.8-10.8)
[2024-07-30 07:31] LABS: Blood Urea Nitrogen 8 mg/dl (7-17); Calcium 8.3 mg/dl (8.4-10.2); Carbon Dioxide 30 mmol/L (22-30); Chloride 95 mmol/L (98-107); Estimated Creatinine Clearance 95 ml/min; Glucose 142 mg/dl (70-99); Potassium 3.7 mmol/L (3.5-5.1); Sodium 133 mmol/L (135-145); eGFR > 60.00
--- NOTE | 2024-07-30 08:20 | PN.DE.MGMTRT ---
Insulin Management
- -
07/30/2024: Diabetes Management Follow up
Patient admitted 3/3 failure to thrive, UTI, pyelonephritis. PMH: untreated diabetes, kidney stone, ulcerative colitis 20 years ago and cellulitis DVT/PE 20 years ago, recent fall with multiple fractured ribs. A1C 10.8%, Cr 0.7, eGFR > 60. Prior to
admission was taking no medications. Patient states she had diabetes 30 years, does not test glucose. Patient very receptive at this time. Understands importance of testing glucose and taking insulin.
Patient is awake alert and oriented, sitting up in chair, able to discuss diabetes care.
07/29 Dinner time glucose was 88, pt received reduced dose of NovoLog 4 units, HS glucose 1092, FBG 142(V), 128 POC this AM.
Will reduce NovoLog from 8 units to 6 units AC. Cont HS Lantus 15 units, with low corrective.
Will cont to follow and make further insulin adjustment if necessary.
Meds at discharge: NovoLog 6 units AC and Lantus 15 units HS
Diabetes Nurse Educator provided and instructed on glucose monitor as well as insulin administration. Nursing now supervising patient self injecting. Nurse reports patient did excellent with self injection of AM NovoLog.
Discussed with nurse.
Diabetes History
- -
Type of Diabetes: 2 requiring insulin
Pre-Admission Diabetes Regimen
07/30/24
06:19
Creatinine 0.5 L
Lab Results
Hemoglobin A1c Cancelled 07/27/24 12:45
Insulin Pump Settings
IP Diabetes Regimen
07/29/24 07/29/24 07/29/24
11:47 17:00 21:23
Glucose
POC Glucose 128 H 88 192 H
07/30/24
06:19
Glucose 142 H
POC Glucose
Meal type: Lunch
Meal type: Breakfast
Amount consumed: 65%
Amount consumed: 50%
Patient Education
[2024-07-30 08:24] LABS: Glucose - Point of Care 128 mg/dl (70-99)
[2024-07-30] MEDS: NOVOLOG FLEXPEN SC (09:00)
[2024-07-30] MEDS: HEPARIN SC (09:41)
[2024-07-30] MEDS: NOVOLOG FLEXPEN 6 UNITS SC ×2 (10:13→13:12)
[2024-07-30] MEDS: FLUSH (NSS) 1 FLUSH IV (10:13)
[2024-07-30 12:27] LABS: Glucose - Point of Care 121 mg/dl (70-99)
--- NOTE | 2024-07-30 14:25 | W.DS.TRANS ---
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
-
Discharge Instructions:
Discharge Diagnosis/Procedures UTI/pyelonephritis.
Hyponatremia.
Type 2 diabetes with hyperglycemia, untreated
Elevated bilirubin with mild elevation of
alkaline phosphatase
Obesity with BMI of 35
Diet Diabetic, Carb Controlled
Instructions:
Stand-Alone Forms:
Changes to Home Medications: Yes
Discharge Medications:
DC Medications w/original date entered in [facility]
multivitamin with folic acid 400 mcg tablet (Tab-A-Claus) 1 tab PO DAILY Supplement 05/06/10
blood sugar diagnostic (Contour Next Test Strips) #200 ea 07/28/24
lancets 21 gauge (Color Lancets) #200 ea 07/28/24
cefdinir 300 mg capsule 300 mg PO Q12 #22 caps 07/30/24
insulin glargine 100 unit/mL (3 mL) subcutaneous pen (Lantus Solostar U-100 Insulin) 15 unit (0.15 mL) SC HS Diabetes #5 ea 07/30/24
insulin lispro 100 unit/mL subcutaneous pen (Humalog KwikPen (U-100) Insulin) 6 unit (0.06 mL) SC AC Diabetes #5 ea 07/30/24
Home Medication Changes
All of above
Pending Results: No
[2024-07-30 15:05] VITALS: BP 119/65
--- NOTE | 2024-07-30 15:41 | CM ---
Met with patient at bedside to discuss discharge plan; she reported that will transport home
Verified IMM on chart
Plan: Discharge to home today; no needs
--- NOTE | 2024-07-30 16:22 | W.PN.ID1 ---
Date of Service
Date of Service: July 30, 2024
Today's Communication
- had ceftriaxone this AM, then friday start cefdinir 300 mg po BID x14 day total course (long course given uncontrolled DM2)
- follow up with PCP
Assessment / Plan
Pyelonephritis due to K pneumoniae
K pneumoniae bacteremia
Nonobstructing renal stone
Uncontrolled Dm2
Class II obesity
- sensitivities back on K pneumoniae, source is urine, no need to repeat blood cultures for clearance from my perspective
- had ceftriaxone this AM, then friday start cefdinir 300 mg po BID x14 day total course (long course given uncontrolled DM2)
- follow up with PCP
Chief Complaint
-: UTI and Bacteremia
Subjective / Review of Systems
afebrile
bp stable
no further rigors
'I feel better'
Vital Signs / Physical Exam
Vital Signs
Vital Signs
Temp Pulse Resp BP Pulse Ox
98.4 F 91 16 119/65 94
07/30/24 15:05 07/30/24 15:05 07/30/24 15:05 07/30/24 15:05 07/30/24 15:05
Physical Exam
Constitutional: No Acute Distress
Cardiovascular: Regular Rate and S1/S2; Negative Murmur or Rub
Pulmonary: Clear and Symmetric; Negative Wheezes or Rales
Gastrointestinal: Soft, Non Tender, Non Distended and Normal Bowel Sounds
Genito-Urinary: Negative Suprapubic Tenderness or CVA Tenderness
Skin: Warm and Dry; Negative Rash or Jaundice
Objective Data
Lab Data
Lab Results
07/30/24 06:19
07/30/24 06:19
Estimated Creat Clear 95 ml/min 07/30/24 06:19
Lactic Acid 0.7 mmol/L (0.7-2.0) 07/26/24 23:32
Total Bilirubin 0.8 mg/dl (0.2-1.3) 07/28/24 08:09
AST 15 U/L (14-36) 07/28/24 08:09
ALT 13 U/L (0-35) 07/28/24 08:09
Alkaline Phosphatase 131 U/L (38-126) H 07/28/24 08:09
Most recent labs reviewed.
Micro Results:
07/27/24 04:16 Blood Culture - Preliminary
Blood/Venous Klebsiella pneumoniae
Gram Stain - Preliminary
07/27/24 04:16 Blood Culture - Final
Blood/Venous Klebsiella pneumoniae
Gram Stain - Final
07/27/24 01:46 Urine Culture - Final
Urine Klebsiella pneumoniae
07/26/24 21:05 Influenza Types A & B (ANGELLA) - Final
Nasal Swab Negative for Influenza A & B, NAAT
Negative results must be combined with clinical observations
and patient history.
Nucleic Acid Amplification test (NAAT)performed on the
[employer] platform.
[2024-07-30 16:43] LABS: Glucose - Point of Care 161 mg/dl (70-99)
== END 2024-07-30 18:27 | disposition home or self-care (01) | DRG 690 ==
LOC: 4 EAST ACU 16:20
PROVIDERS: Emergency Medicine; ADMITTING PHYSICIAN Internal Medicine; ATTENDING PHYSICIAN Internal Medicine; CONSULT PHYSICIAN Student in an Organized Health Care Education/Training Program; EMERGENCY PHYSICIAN Emergency Medicine
DX: N10 Acute pyelonephritis (principal); S22.080A Wedge compression fracture of T11-T12 vertebra, initial encounter for closed fracture; E87.1 Hypo-osmolality and hyponatremia; R78.81 Bacteremia; R62.7 Adult failure to thrive; E11.65 Type 2 diabetes mellitus with hyperglycemia; N20.0 Calculus of kidney; B96.1 Klebsiella pneumoniae [K. pneumoniae] as the cause of diseases classified elsewhere; K59.00 Constipation, unspecified; E66.812 Obesity, class 2; Z68.35 Body mass index [BMI] 35.0-35.9, adult; Z11.52 Encounter for screening for COVID-19; Z88.2 Allergy status to sulfonamides; Z86.718 Personal history of other venous thrombosis and embolism; Z86.711 Personal history of pulmonary embolism; W19.XXXA Unspecified fall, initial encounter
CPT/HCPCS: 71046; 74177; 80048; 80053; 81003; 81015; 82248; 82962; 83036; 83605; 83690; 83935; 84300; 84443; 85025; 85027; 86803; 87040; 87077; 87086; 87149; 87186; 87205; 87502; 87811; 93005; 96361; 96374; 99285; Q9967

== ENCOUNTER → 2024-08-18 11:19 | Outpatient (REF) | payer MEDICARE, SELFPAY | LOC: RAD 11:19 | PROVIDERS: ATTENDING PHYSICIAN Student in an Organized Health Care Education/Training Program | DX: I73.9 Peripheral vascular disease, unspecified (principal); E11.9 Type 2 diabetes mellitus without complications; Z79.4 Long term (current) use of insulin; M79.661 Pain in right lower leg; M79.662 Pain in left lower leg | CPT/HCPCS: 93922; 93925; 93970 ==

== ENCOUNTER → 2024-10-20 11:46 | Outpatient (REF) | payer MEDICARE, SELFPAY ==
[2024-10-20 12:55] LABS: Blood Urea Nitrogen 24 mg/dl (7-17); Calcium 9.9 mg/dl (8.4-10.2); Carbon Dioxide 27 mmol/L (22-30); Chloride 105 mmol/L (98-107); Glucose 129 mg/dl (70-99); Potassium 4.7 mmol/L (3.5-5.1); Sodium 141 mmol/L (135-145); eGFR > 60.00
[2024-10-20 16:18] LABS: TSH 2.48 uIU/ml (0.47-4.68)
== END ==
LOC: REG 11:46
PROVIDERS: ATTENDING PHYSICIAN Student in an Organized Health Care Education/Training Program
DX: R60.0 Localized edema (principal); R00.2 Palpitations
CPT/HCPCS: 36415; 80048; 84443

== ENCOUNTER → 2024-10-23 09:41 | Outpatient (REF) | payer MEDICARE, SELFPAY | LOC: RCS 09:41 | PROVIDERS: ATTENDING PHYSICIAN Student in an Organized Health Care Education/Training Program | DX: R00.2 Palpitations (principal); R60.0 Localized edema | CPT/HCPCS: 93225; 93226 ==

== ENCOUNTER → 2024-11-02 14:52 | Outpatient (REF) | payer MEDICARE, SELFPAY | LOC: RCS 14:52 | PROVIDERS: ATTENDING PHYSICIAN Student in an Organized Health Care Education/Training Program | DX: R00.2 Palpitations (principal); R60.0 Localized edema | CPT/HCPCS: 93306 ==

== ENCOUNTER → 2024-11-09 11:00 | Outpatient (REF) | payer MEDICARE, SELFPAY ==
[2024-11-09 12:16] LABS: Blood Urea Nitrogen 20 mg/dl (7-17); Calcium 10.3 mg/dl (8.4-10.2); Carbon Dioxide 30 mmol/L (22-30); Chloride 105 mmol/L (98-107); Glucose 143 mg/dl (70-99); Potassium 4.8 mmol/L (3.5-5.1); Sodium 140 mmol/L (135-145); eGFR > 60.00
[2024-11-10 09:52] LABS: Glycohemoglobin (HgbA1c) 6.5 % (4.0-5.6)
== END ==
LOC: REG 11:00
PROVIDERS: ATTENDING PHYSICIAN Student in an Organized Health Care Education/Training Program
DX: E11.9 Type 2 diabetes mellitus without complications (principal)
CPT/HCPCS: 36415; 80048; 83036

== ENCOUNTER → 2024-12-13 16:41 | Outpatient (REF) | payer MEDICARE, SELFPAY ==
[2024-12-13 17:28] LABS: Urine Character Clear (Clear)
[2024-12-13 17:55] LABS: Microalbumin, Random Urine 12.7 mg/dl (0.6-1.7)
[2024-12-13 19:27] LABS: Urine Red Blood Cell 0-2 /HPF (0-2); Urine Squamous Cell 0-2 /LPF (Few); Urine White Cell 0-2 /HPF (0-5)
== END ==
LOC: CLAB 16:41
PROVIDERS: ATTENDING PHYSICIAN Student in an Organized Health Care Education/Training Program
DX: R60.0 Localized edema (principal); E11.9 Type 2 diabetes mellitus without complications; N20.0 Calculus of kidney
CPT/HCPCS: 81003; 81015; 82043; 87086